=== PATIENT | female | born 1930 | race Caucasian/White ===

== ENCOUNTER 2016-07-16 14:25 | Inpatient (IN) | payer OTHER ==
[~2016-07-16] VITALS: Ht 165.1 cm; Wt 75.7 kg
[~2016-07-16 14:25] MED LIST: ATOR-54 PO; CHOL100027 PO; DIAZ2TAB PO; MAGN500C PO; MDR4 PO; MULT-884 PO
[2016-07-16] MEDS ORDERED: SODIUM CHLORIDE 0.9% 1000ML 1,000 ML IV STA (14:50)
[2016-07-16] MEDS ORDERED: ONDANSETRON INJ 2 MG/ML 2 ML VIAL IV STA (14:50)
[2016-07-16] MEDS ORDERED: MoRPHine SULFATE 4 MG/ML 1 ML CARP\\VIAL IV PRN (15:00)
[2016-07-16] MEDS ORDERED: PSEU30TA20 PO (15:05)
[2016-07-16] MEDS ORDERED: APIX1TAB3 PO (15:05)
--- NOTE | 2016-07-16 15:05 | EMERGENCY ROOM VISIT NOTE ---
History Report prepared by Greta: Campbell Hendrix Under the Supervision of: Dr. Troy Choi D.O. First contact with patient: 14:42 Chief Complaint: HIP PAIN Stated Complaint: FALL/HIP PAIN History of Present Illness The patient is an 85 year old female who presents to the Emergency Room with complaints of constant pain in the left hip following a falling episode. The patient states that she fell at 1320 this afternoon, roughly 1.5 hours prior to arrival. The patient denies hitting her head during the fall, or losing consciousness at any time. She also denies any neck pain or other injuries from the fall. She notes a history of blood clot and is currently on Eliquis daily. Source of History: patient Onset: 1.5 hours CORPORATE COMPLIANCE MANAGER Position: other (Left hip) Timing: constant Associated Symptoms: No LOC, No headache, No neck pain Review of Systems See HPI for pertinent positives & negatives. A total of 10 systems reviewed and were otherwise negative. Past Medical & Surgical Medical Problems: (1) Bronchitis (2) Chronic low back pain (3) Fracture of left hip (4) Hyperlipidemia (5) Osteoporosis Surgical Problems: (1) H/o bunion surgery (2) History of cataract surgery (3) Previous back surgery (4) S/P tonsillectomy (5) Status post lumbar surgery Family History Diabetes mellitus FH: pancreatic cancer FH: testicular cancer Social History Smoking Status: Never Smoker Drug Use: none Marital Status: Housing Status: assisted living Occupation Status: retired Current/Historical Medications Scheduled Apixaban (Eliquis), 5 MG PO BID Atorvastatin (Lipitor), 20 MG PO HS Cholecalciferol (Vitamin D3), 4,000 UNITS PO DAILY Magnesium Oxide (Mg Supplement (Magnesium), 500 MG PO DAILY Multiple Vitamin (Multi Vitamin Daily), 1 TAB PO DAILY Scheduled PRN Diazepam (Valium), 2 MG PO DAILY PRN for Muscle Spasms Fluticasone Propionate (Nasal) (Flonase Allergy Relief), 2 SPRAYS AUTUMN DAILY PRN for Nasal Congestion Pseudoephedrine (Sudafed), 30 MG PO UD PRN for Nasal Congestion Allergies Coded Allergies: Sulfa Antibiotics (Verified Allergy, Intermediate, RASH, 07/16/16) Doxycycline (Verified Adverse Reaction, Mild, GI UPSET, 07/16/16) Simvastatin (Verified Adverse Reaction, Mild, MUSCLE WEAKNESS, 07/16/16) Physical Exam Vital Signs Date Time Temp Pulse Resp B/P (MAP) Pulse Ox O2 Delivery O2 Flow Rate FiO2 07/16/16 17:00 90 Room Air 07/16/16 16:19 87 20 159/82 90 Room Air 07/16/16 14:35 36.9 84 17 181/103 94 Room Air Physical Exam GENERAL: Patient is awake, alert, and somewhat anxious and uncomfortable appearing. EYES: The conjunctivae are clear. The pupils are round and reactive. EARS, NOSE, MOUTH AND THROAT: The nose is without any evidence of any deformity. Mucous membranes are moist tongue is midline NECK: The neck is nontender and supple. RESPIRATORY: Normal respiratory effort is noted there is no evidence of wheezing rhonchi or rales CARDIOVASCULAR: Regular rate and rhythm noted there no murmurs rubs or gallops normal S1 normal S2 GASTROINTESTINAL: The abdomen is soft. Bowel sounds are present in all quadrants. Abdomen is nontender BACK: No midline tenderness or or step-off noted range of motion in flexion extension as well as rotation no signs of muscle spasm noted MUSCULOSKELETAL/EXTREMITIES: The left lower extremity was shortened with no significant rotation. There was tenderness with ROM over the left hip. Pulses were symmetric. SKIN: There is no obvious evidence of any rash. There are no petechiae, pallor or cyanosis noted. NEUROLOGIC: Patient is awake alert and oriented x3 Medical Decision & Procedures ER Provider Diagnostic Interpretation: Radiology results as stated below per my review and radiologist interpretation: CHEST 1 VW FRONT-NOT PORTABLE CLINICAL HISTORY: Left hip pain status post trauma COMPARISON STUDY: 02/01/2014 FINDINGS: The heart is borderline enlarged. There is mild nodular prominence of the right hilum. There are right perihilar atelectatic changes. There is no lobar consolidation. There is no failure.[ IMPRESSION: 1. Mild right perihilar atelectasis 2. Mild nonspecific nodular prominence of the right hilum. 3. No evidence of failure. No evidence of lobar consolidation. Electronically signed by: Severiano Villegas M.D. 07/16/2016 4:01 PM Dictated Date/Time: 07/16/2016 3:59 PM LEFT PELVIS/UNILATERAL HIP 2-3VIEWS CLINICAL HISTORY: fall trauma. Pain. COMPARISON: None. DISCUSSION: Fracture left femoral neck. No evidence of dislocation. Slice appear migration left femoral shaft. No evidence for acetabular protrusion. There is no evidence for soft tissue swelling. IMPRESSION: Fracture left femoral neck Electronically signed by: Florian Flaherty M.D. 07/16/2016 4:01 PM Dictated Date/Time: 07/16/2016 3:59 PM Laboratory Results 07/16/16 15:17 Red Blood Count 4.79, Mean Corpuscular Volume 90.4, Mean Corpuscular Hemoglobin 29.9, Mean Corpuscular Hemoglobin Concent 33.0, Mean Platelet Volume 9.2, Neutrophils (%) (Auto) 69.4, Lymphocytes (%) (Auto) 14.6, Monocytes (%) (Auto) 11.7, Eosinophils (%) (Auto) 3.5, Basophils (%) (Auto) 0.4, Neutrophils # (Auto ) 3.32, Lymphocytes # (Auto) 0.70, Monocytes # (Auto) 0.56, Eosinophils # (Auto ) 0.17, Basophils # (Auto) 0.02 07/16/16 15:17 Test 07/16/16 15:17 White Blood Count 4.79 K/uL (4.8-10.8) Red Blood Count 4.79 M/uL (4.2-5.4) Hemoglobin 14.3 g/dL (12.0-16.0) Hematocrit 43.3 % (37-47) Mean Corpuscular Volume 90.4 fL (80-100) Mean Corpuscular Hemoglobin 29.9 pg (25-34) Mean Corpuscular Hemoglobin Concent 33.0 g/dl (32-36) Platelet Count 227 K/uL (130-400) Mean Platelet Volume 9.2 fL (7.4-10.4) Neutrophils (%) (Auto) 69.4 % Lymphocytes (%) (Auto) 14.6 % Monocytes (%) (Auto) 11.7 % Eosinophils (%) (Auto) 3.5 % Basophils (%) (Auto) 0.4 % Neutrophils # (Auto) 3.32 K/uL (1.4-6.5) Lymphocytes # (Auto) 0.70 K/uL (1.2-3.4) Monocytes # (Auto) 0.56 K/uL (0.11-0.59) Eosinophils # (Auto) 0.17 K/uL (0-0.5) Basophils # (Auto) 0.02 K/uL (0-0.2) RDW Standard Deviation 41.6 fL (36.4-46.3) RDW Coefficient of Variation 12.5 % (11.5-14.5) Immature Granulocyte % (Auto) 0.4 % Immature Granulocyte # (Auto) 0.02 K/uL (0.00-0.02) Prothrombin Time 11.2 SECONDS (9.0-12.0) Prothromb Time International Ratio 1.0 (0.9-1.1) Activated Partial Thromboplast Time 29.6 SECONDS (21.0-31.0) Partial Thromboplastin Ratio 1.1 Anion Gap 8.0 mmol/L (3-11) Est Creatinine Clear Calc Drug Dose 59.6 ml/min Estimated GFR () 91.4 Estimated GFR (Non- 78.8 BUN/Creatinine Ratio 16.8 (10-20) Calcium Level 10.1 mg/dl (8.5-10.1) Troponin I < 0.015 ng/ml (0-0.045) 25-Hydroxy Vitamin D Total 27.5 ng/ml (30-100) Laboratory results per my review. Medications Administered Medications (Trade) Dose Ordered Sig/Robert Route Start Time Stop Time Status Last Admin Dose Admin Morphine Sulfate (MoRPHine SULFATE INJ) 4 mg Q15M PRN IV 07/16/16 15:00 07/16/16 18:21 DC 07/16/16 15:26 4 MG Ondansetron HCl (Zofran Inj) 4 mg NOW STAT IV 07/16/16 14:50 07/16/16 14:51 DC 07/16/16 15:26 4 MG Sodium Chloride 1,000 ml @ 125 mls/hr Q8H STAT IV 07/16/16 14:50 07/16/16 18:21 DC 07/16/16 15:26 125 MLS/HR Oxycodone HCl (Roxicodone Immediate Rel Tab) 5 mg Q4H PRN PO 07/16/16 17:15 07/30/16 17:14 07/16/16 17:58 5 MG Oxycodone HCl (Roxicodone Immediate Rel Tab) 10 mg Q4H PRN PO 07/16/16 17:15 07/30/16 17:14 07/16/16 21:01 10 MG Diazepam (Valium Tab) 2 mg DAILY PRN PO 07/16/16 17:30 08/15/16 17:29 07/16/16 19:22 2 MG ECG Indication: weakness Rate (beats per minute): 72 Rhythm: normal sinus Findings: PVC (Frequent), no acute ischemic change ED Course 1447: The patient was evaluated in room C4. A complete history and physical examination were performed. 1450: Ordered Sodium Chloride 1000 mL @ 125 mL/hr IV, Zofran 4 mg IV. 1500: Ordered Morphine Sulfate 4 mg IV. 161: I discussed the case with Dr. Tram Bhagat. He will evaluate the patient for further treatment. 165: I discussed the case with Dr. Combs - Orthopedic Surgery at this time. He will follow in consultation for surgical repair. Medical Decision Patient was found to have a slightly elevated blood pressure due to circumstances. I do not believe that the patient requires hypertension monitoring. Medication Reconciliation: I attest that I have personally reviewed the patient' s current medications list. Differential diagnosis: Etiologies such as fracture, dislocation, neurovascular compromise, compartment syndrome, soft tissue injury, as well as others were entertained. The patient is an 85-year-old female who presented to the emergency department after a fall. The patient fell onto her left side hurting her left hip. Her history and physical exam appear to be consistent with a hip fracture. Hip fracture was noted on plain x-rays. The patient was treated with IV pain medication and IV fluids in the emergency department. On subsequent reevaluation she was feeling somewhat better. I discussed the patient's laboratory and radiographic studies with her. I also discussed her case with the on-call [facility] hospitalist as well as the on-call orthopedic physician. They've agreed to evaluate the patient for further management and disposition. Consults Time Called: 161 Consulting Physician: Dr. Tram Bhagat Returned Call: 161 I discussed the case with Dr. Tram Bhagat. He will evaluate the patient for further treatment. Additional Consults: Time Called: 165 Consulted Physician: Dr. Bruce - Orthopedic Surgery Returned Call: 165 Additional Comments: I discussed the case with Dr. Combs - Orthopedic Surgery at this time. He will follow in consultation for surgical repair. Impression Primary Impression: Fall Additional Impression: Subcapital fracture of left hip Scribe Attestation The scribe's documentation has been prepared under my direction and personally reviewed by me in its entirety. I confirm that the note above accurately reflects all work, treatment, procedures, and medical decision making performed by me. Departure Information Dispostion Being Evaluated By Hospitalist Referrals Rod Guerrero III, M.D. (PCP) Patient Instructions My [facility] Problem Qualifiers Primary Impression: Fall Encounter type: initial encounter Qualified Codes: W19.XXXA - Unspecified fall, initial encounter Additional Impression: Subcapital fracture of left hip Encounter type: initial encounter Fracture type: closed Qualified Codes: S72.012A - Unspecified intracapsular fracture of left femur, initial encounter for closed fracture
[2016-07-16 15:47] LABS: BASO % 0.4 %; BASO ABS # 0.02 K/uL (0-0.2); COMPLETE YES; EOS % 3.5 %; HEMATOCRIT 43.3 % (37-47); IG% 0.4 %; LYMPH % 14.6 %; MEAN CELL VOLUME 90.4 fL (80-100); MEAN CORPUSCULAR HEMOGLOBIN 29.9 pg (25-34); MEAN PLATELET VOLUME 9.2 fL (7.4-10.4); MONO % 11.7 %; NEUT % 69.4 %; PLATELET COUNT 227 K/uL (130-400); RED BLOOD COUNT 4.79 M/uL (4.2-5.4); WHITE BLOOD COUNT 4.79 K/uL (4.8-10.8)
[2016-07-16 15:55] LABS: PARTIAL THROMBOPLASTIN RATIO 1.1; PROTHROMBIN TIME (PATIENT) 11.2 SECONDS (9.0-12.0)
--- NOTE | 2016-07-16 16:02 | DIAGNOSTIC IMAGING REPORT ---
LEFT PELVIS/UNILATERAL HIP 2-3VIEWS CLINICAL HISTORY: fall trauma. Pain. COMPARISON: None. DISCUSSION: Fracture left femoral neck. No evidence of dislocation. Slice appear migration left femoral shaft. No evidence for acetabular protrusion. There is no evidence for soft tissue swelling. IMPRESSION: Fracture left femoral neck Electronically signed by: Florian Flaherty M.D. 07/16/2016 4:01 PM Dictated Date/Time: 07/16/2016 3:59 PM
--- NOTE | 2016-07-16 16:03 | DIAGNOSTIC IMAGING REPORT ---
CHEST 1 VW FRONT-NOT PORTABLE CLINICAL HISTORY: Left hip pain status post trauma COMPARISON STUDY: 02/01/2014 FINDINGS: The heart is borderline enlarged. There is mild nodular prominence of the right hilum. There are right perihilar atelectatic changes. There is no lobar consolidation. There is no failure.[ IMPRESSION: 1. Mild right perihilar atelectasis 2. Mild nonspecific nodular prominence of the right hilum. 3. No evidence of failure. No evidence of lobar consolidation. Electronically signed by: Severiano Villegas M.D. 07/16/2016 4:01 PM Dictated Date/Time: 07/16/2016 3:59 PM
[2016-07-16 16:13] LABS: BUN/CREATININE RATIO 16.8 (10-20); CREATININE 0.69 mg/dl (0.60-1.20); POTASSIUM 3.7 mmol/L (3.5-5.1)
[2016-07-16 16:52] LABS: CALCIUM 10.1 mg/dl (8.5-10.1)
[2016-07-16 17:00] VITALS: O2SAT 90; Ht 165.1 cm; Wt 75.7 kg
[2016-07-16] MEDS ORDERED: ACETAMINOPHEN 325 MG TAB PO PRN (17:15)
[2016-07-16] MEDS ORDERED: NALOXONE HCL 0.4 MG/1 ML VIAL/CARP IV PRN (17:15)
[2016-07-16] MEDS ORDERED: BISACODYL 10 MG SUPP PR PRN (17:15)
[2016-07-16] MEDS ORDERED: MoRPHine SULFATE 2 MG/ML CARP IV PRN (17:15)
[2016-07-16] MEDS ORDERED: MAGNESIUM HYDROXIDE SUSP 30 ML UDC PO PRN (17:15)
[2016-07-16] MEDS ORDERED: SOD PHOSPHATE/SOD BIPHOSPHATE ENEMA 132 ML BTL PR PRN (17:15)
[2016-07-16] MEDS ORDERED: POLYETHYLENE (MIRALAX) 17 GM PACK PO PRN (17:15)
[2016-07-16] MEDS ORDERED: CHOL20005 PO (17:19)
[2016-07-16] MEDS ORDERED: FLUT0.15 NAE (17:21)
--- NOTE | 2016-07-16 17:48 | History and Physical ---
History & Physical Date & Time of Service: Jul 16, 2016 at 17:09 Chief Complaint: Fall/Hip Pain Primary Care Physician: Rod Guerrero III, M.D. 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 Patient states earlier today while walking too quickly she tripped on her sandal in the hallway of [facility] and fell onto her left hip. There was no dizziness or LOC. Patient was unable to stand due to severe left hip pain with movement. No other injury. 911 was called and patient was brought to ER by ambulance. Pain is localized in left groin area, rated 2/10 at rest and 9/10 with movement. She received IV morphine in ER which helped. Patient has been feeling at baseline recently. She lives in an independent apartment in [facility]. Patient climbs 2 flights of stairs daily without issues. Has occasional dry cough, sneezing, itchy watery eyes attributed to seasonal allergies. Denies fevers, chest pain, SOB, REYES, N/V/D, dysuria, frequency, edema, abnormal bleeding or bruising, acute focal weakness/ numbness. Last dose of Eliquis was at 9 am this morning. Patient denies any history of CAD. Last stress echo negative in 2004 showed normal LV EF 55-60%, grade 1 aortic insufficiency. Past Medical/Surgical History Medical Problems: (1) Bronchitis Status: Resolved (2) Chronic low back pain Status: Chronic (3) Hyperlipidemia Status: Chronic (4) Osteoporosis Status: Chronic Surgical Problems: (1) H/o bunion surgery Status: Chronic (2) History of cataract surgery Status: Resolved (3) Previous back surgery Status: Resolved (4) S/P tonsillectomy Status: Chronic (5) Status post lumbar surgery Status: Chronic Family History Diabetes mellitus FH: pancreatic cancer FH: testicular cancer Social History Smoking Status: Never Smoker Alcohol Use: none Marital Status: Housing status: other (independent living at [facility]) Occupational Status: retired Immunizations Influenza Vaccine Date: Feb 01, 2014 Multi-Drug Resistant Organisms History of MDRO: No Allergies Coded Allergies: Sulfa Antibiotics (Verified Allergy, Intermediate, RASH, 07/16/16) Doxycycline (Verified Adverse Reaction, Mild, GI UPSET, 07/16/16) Simvastatin (Verified Adverse Reaction, Mild, MUSCLE WEAKNESS, 07/16/16) Home Medications Scheduled Apixaban (Eliquis), 5 MG PO BID Atorvastatin (Lipitor), 20 MG PO HS Cholecalciferol (Vitamin D3), 4,000 UNITS PO DAILY Magnesium Oxide (Mg Supplement (Magnesium), 500 MG PO DAILY Multiple Vitamin (Multi Vitamin Daily), 1 TAB PO DAILY Scheduled PRN Diazepam (Valium), 2 MG PO DAILY PRN for Muscle Spasms Fluticasone Propionate (Nasal) (Flonase Allergy Relief), 2 SPRAYS AUTUMN DAILY PRN for Nasal Congestion Pseudoephedrine (Sudafed), 30 MG PO UD PRN for Nasal Congestion Review of Systems Ten systems reviewed and negative except as noted in HPI. Physical Exam Vital Signs Date Time Temp Pulse Resp B/P (MAP) Pulse Ox O2 Delivery O2 Flow Rate FiO2 07/16/16 16:19 87 20 159/82 90 Room Air 07/16/16 14:35 36.9 84 17 181/103 94 Room Air General Appearance: WD/WN, no apparent distress, + pertinent finding (pleasant alert elderly female, daughter at bedside) Head: normocephalic, atraumatic Eyes: normal inspection, PERRL, EOMI ENT: hearing grossly normal, pharynx normal Neck: supple, trachea midline Respiratory/Chest: lungs clear, normal breath sounds, no respiratory distress, no accessory muscle use Cardiovascular: regular rate, rhythm, no murmur Abdomen/GI: normal bowel sounds, non tender, soft Extremities/Musculoskelatal: no calf tenderness, no pedal edema, + pertinent finding (severe pain with left hip ROM) Neurologic/Psych: alert, normal mood/affect, oriented x 3, + pertinent finding (sensation to light touch grossly intact bilateral LE. able to flex/ extend bilateral ankles against gravity) Skin: normal color, warm/dry Diagnostics Laboratory Results Results Past 24 Hours Test 07/16/16 15:17 Range/Units White Blood Count 4.79 4.8-10.8 K/uL Red Blood Count 4.79 4.2-5.4 M/uL Hemoglobin 14.3 12.0-16.0 g/dL Hematocrit 43.3 37-47 % Mean Corpuscular Volume 90.4 80-100 fL Mean Corpuscular Hemoglobin 29.9 25-34 pg Mean Corpuscular Hemoglobin Concent 33.0 32-36 g/dl Platelet Count 227 130-400 K/uL Mean Platelet Volume 9.2 7.4-10.4 fL Neutrophils (%) (Auto) 69.4 % Lymphocytes (%) (Auto) 14.6 % Monocytes (%) (Auto) 11.7 % Eosinophils (%) (Auto) 3.5 % Basophils (%) (Auto) 0.4 % Neutrophils # (Auto) 3.32 1.4-6.5 K/uL Lymphocytes # (Auto) 0.70 1.2-3.4 K/uL Monocytes # (Auto) 0.56 0.11-0.59 K/uL Eosinophils # (Auto) 0.17 0-0.5 K/uL Basophils # (Auto) 0.02 0-0.2 K/uL RDW Standard Deviation 41.6 36.4-46.3 fL RDW Coefficient of Variation 12.5 11.5-14.5 % Immature Granulocyte % (Auto) 0.4 % Immature Granulocyte # (Auto) 0.02 0.00-0.02 K/uL Prothrombin Time 11.2 9.0-12.0 SECONDS Prothromb Time International Ratio 1.0 0.9-1.1 Activated Partial Thromboplast Time 29.6 21.0-31.0 SECONDS Partial Thromboplastin Ratio 1.1 Sodium Level 134 136-145 mmol/L Potassium Level 3.7 3.5-5.1 mmol/L Chloride Level 99 98-107 mmol/L Carbon Dioxide Level 27 21-32 mmol/L Anion Gap 8.0 3-11 mmol/L Blood Urea Nitrogen 12 7-18 mg/dl Creatinine 0.69 0.60-1.20 mg/dl Est Creatinine Clear Calc Drug Dose 59.6 ml/min Estimated GFR () 91.4 Estimated GFR (Non- 78.8 BUN/Creatinine Ratio 16.8 10-20 Random Glucose 98 70-99 mg/dl Calcium Level 10.1 8.5-10.1 mg/dl Troponin I < 0.015 0-0.045 ng/ml Diagnostic Radiology LEFT PELVIS/UNILATERAL HIP 2-3VIEWS CLINICAL HISTORY: fall trauma. Pain. COMPARISON: None. DISCUSSION: Fracture left femoral neck. No evidence of dislocation. Slice appear migration left femoral shaft. No evidence for acetabular protrusion. There is no evidence for soft tissue swelling. IMPRESSION: Fracture left femoral neck CHEST 1 VW FRONT-NOT PORTABLE CLINICAL HISTORY: Left hip pain status post trauma COMPARISON STUDY: 02/01/2014 FINDINGS: The heart is borderline enlarged. There is mild nodular prominence of the right hilum. There are right perihilar atelectatic changes. There is no lobar consolidation. There is no failure.[ IMPRESSION: 1. Mild right perihilar atelectasis 2. Mild nonspecific nodular prominence of the right hilum. 3. No evidence of failure. No evidence of lobar consolidation. EKG sinus rhythm with occasional PVC, otherwise normal, as per cardiology read, also reviewed by me Impression Assessment and Plan LEFT HIP FRACTURE S/p mechanical fall; patient with underlying osteoporosis Management per geriatric hip fracture protocol Good functional status- climbs 2 flights of stairs daily EKG- no ischemic findings No recent echo- will check TTE to assess cardiac function Consult anesthesiology for preop eval Spoke to Dr. Travis regarding how long Eliquis must be held prior to surgery- recommended postponing surgery until Wednesday 07/19; appreciate the assistance Consult ortho- spoke with Dr. Combs; patient will be added to OR schedule for Tuesday; appreciate assistance Check vitamin D level and continue home supplement ELEVATED BP Patient does not have a history of hypertension BP elevated in ER due to pain- improving Continue pain control DYSLIPIDEMIA Continue statin HISTORY OF DVT RLE DVT unprovoked in 2014 Hold Eliquis due to need for surgery Per Dr. Travis's recommendation, when Eliquis is resumed the correct dosing would be 2.5 mg BID for DVT >6 months ago VTE PROPHYLAXIS SCD's CODE STATUS Full code per my discussion with the patient Patient seen in collaboration with Dr. Ugalde. Please see his addendum The patient was seen and examined. S/P Mechanical fall resulting in fracture of the left Femoral neck Complains of pain on movement of the left Lower extremity No other symptoms Has been on Eliquis for DVT in 2014 O/E Hemodynamically stable Chest-clear to ausucltate bilaterally Heart-regular Abdomen-benign,no masses,bowel sound present Extremities-trace edema bilaterally ,left leg is short and rotated internally Labs and imaging studies were reviewed Check ECHO:has H/O Aortic insufficiency,r/o any Agree with the assessment and plan DR Suzan Ugalde VTE Prophylaxis VTE Risk Assessment Done? Y/N: Yes Risk Level: High Given or contraindicated: SCD's
[2016-07-16] MEDS: OXYCODONE HCL IR 5 MG TAB (IMMEDIATE RELEASE) PO PRN ×2 (17:58→21:01)
[2016-07-16 18:00] VITALS: BP 156/78; PULSE 78; TEMP 36.7; O2SAT 91
[2016-07-16 18:29] LABS: URINE APPEARANCE CLEAR (CLEAR); URINE BILIRUBIN NEG (NEG); URINE COLOR YELLOW; URINE NITRITE NEG (NEG); URINE PH 7.5 (4.5-7.5); URINE SPECIFIC GRAVITY 1.011 (1.000-1.030); UROBILINOGEN NEG (NEG); ZZURINE CULT IF INDIC CATH NO
[2016-07-16 18:30] LABS: MANUAL MICROSCOPIC REQUIRED? NO; REVIEW REQ? NO
[2016-07-16] MEDS: DIAZEPAM 2MG TAB PO PRN (19:22)
[2016-07-16] MEDS: DOCUSATE SODIUM/SENNA 50/8.6MG TAB PO SCH (21:00)
[2016-07-16] MEDS: ATORVASTATIN 20 MG TAB PO SCH (21:00)
[2016-07-16 22:42] VITALS: BP 132/71; PULSE 74; TEMP 36.4; O2SAT 94
[2016-07-17] MEDS: OXYCODONE HCL IR 5 MG TAB (IMMEDIATE RELEASE) PO PRN ×5 (02:13→22:08)
[2016-07-17] MEDS ORDERED: CEFAZOLIN 2000 MG/60 ML D5W 60 ML IV SCH (06:00)
[2016-07-17 06:46] VITALS: BP 119/67; PULSE 70; TEMP 36.8; O2SAT 94
[2016-07-17] MEDS: CHOLECALCIFEROL 1000 INTER.UNIT TAB PO SCH (07:38)
[2016-07-17] MEDS: MULTIVITAMIN TAB PO SCH (07:38)
[2016-07-17] MEDS: MAGNESIUM OXIDE 400 MG TAB PO SCH (07:38)
--- NOTE | 2016-07-17 10:30 | ORTHOPEDIC CONSULTATION ---
DATE OF CONSULTATION: 07/17/2016 DATE OF CONSULTATION: 07/17/2016. HISTORY OF PRESENT ILLNESS: The patient is a pleasant 85-year-old female who feels that she caught her sandal and tripped. She lives at [facility] in [facility] on the third floor. She walks the stairs 3 flights daily. She said she is a little short of breath by the time she gets to the top of the stairs, but she would rather do the stairs than take an elevator. She was brought to the Emergency Room with pain in her left hip with a diagnosis of a displaced femoral neck fracture. PAST MEDICAL HISTORY: Positive for bronchitis, low back pain, hyperlipidemia, osteoporosis. PAST SURGICAL HISTORY: Bunion surgery, cataract, back surgery, tonsillectomy. FAMILY HISTORY: Diabetes, pancreatic cancer, testicular cancer. SOCIAL HISTORY: Never smoked. No alcohol use. She is , once again lives independently. ALLERGIES: SULFA ANTIBIOTICS, DOXYCYCLINE, SIMVASTATIN. MEDICATIONS: She is on Eliquis, Lipitor, vitamin D, magnesium, and multivitamin. PHYSICAL EXAMINATION: GENERAL: Demonstrates that she has no upper extremity trauma. HEAD AND NECK: Exam is normal. EXTREMITIES: Her lower extremity exam demonstrates her left leg is shortened and externally rotated with some moderate swelling about the hip. Distal neurological exam is intact. She can dorsiflex and plantarflex her foot well. She is comfortable if she is not moved. Her x-rays demonstrate a displaced femoral neck fracture. ASSESSMENT: Left hip acute displaced femoral neck fracture, posttraumatic. The patient is a very active individual, an active community ambulator. She drives independently. She shops independently and she would like to climb 3 flights of stairs on a regular basis again. With her activity level I would recommend a total hip replacement. She is on Eliquis so there is a mandatory wait of at least 48 hours prior to any surgery, so tentatively she is scheduled for surgery on Tuesday. Consult Dr. Rabago if he is present at the time and she may consider doing surgery as one of her relatives had surgery with him. Either that or I will perform the surgery. Went over this at length with her. She should be n.p.o. at midnight on Tuesday evening. She will need reoperative antibiotics Ancef. Thank you for this consultation.
--- NOTE | 2016-07-17 13:45 | ECHOCARDIOGRAM REPORT ---
*NOTICE TO RECEIVING [facility] This information is strictly Confidential and protected under [place] law. [place] law prohibits you from making any further disclosure of this information unless further disclosure is expressly permitted by the written consent of the person to whom it pertains or is authorized by law. A general authorization for the release of medical or other information is not sufficient for this purpose. Hospital accepts no responsibility if the information is made available to any other person, INCLUDING THE PATIENT. Interpretation Summary * Name: LUIS ANAYA Study Date: 07/17/2016 07:46 AM BP: 119/67 mmHg * Patient Location: [facility]\S\W350\S\2 HR: 70 * : 1930 (M/d/yyy) Gender: Female Height: 65 in * Age: 85 yrs Ethnicity: [place] Weight: 166 lb * Ordering Physician: Codie Root * Referring Physician: Self, Referred * Performed By: Johanne Jean Baptiste RDCS * * Reason For Study: Pre-op * BSA: 1.8 m2 * The study was technically adequate. * There is no comparison study available. * -- Conclusions -- * Ejection Fraction = 55-60%. * There is mild concentric left ventricular hypertrophy. * No regional wall motion abnormalities noted. * Grade I diastolic dysfunction, (abnormal relaxation pattern). * Aortic valve sclerosis mild, without significant aortic valvular stenosis. * Mild aortic regurgitation. Procedure Details * A complete two-dimensional transthoracic echocardiogram was performed (2D, M-mode, Doppler and color flow Doppler). Left Ventricle * The left ventricle is normal in size. * There is no thrombus. * There is mild concentric left ventricular hypertrophy. * The basal septum is thickened and angulated consistent with sigmoid septum. * Ejection Fraction = 55-60%. * Left ventricular systolic function is normal. * No regional wall motion abnormalities noted. Right Ventricle * The right ventricle is normal size. * The right ventricular systolic function is normal as assessed by tricuspid annular plane systolic excursion (TAPSE) (normal >1.5 cm). Atria * The left atrial size is normal. * Right atrial size is normal. * There is no evidence of atrial septal defect, but resolution does not allow assessment for a patent foramen ovale. * The atrial septum is aneurysmal. Mitral Valve * There is moderate mitral annular calcification. * There is no mitral valve stenosis. * Significant mitral regurgitation is absent. Tricuspid Valve * The tricuspid valve is normal. * There is no tricuspid stenosis. * Significant tricuspid regurgitation is absent. Aortic Valve * The aortic valve is trileaflet. * Aortic valve sclerosis mild, without significant aortic valvular stenosis. * Aortic stenosis is absent. * Mild aortic regurgitation. Pulmonic Valve * The pulmonary valve is not well seen, but the Doppler examination is normal without significant regurgitation or stenosis. Great Vessels * The aortic root and proximal ascending aorta are normal sized. Pericardium/Pleural * There is no pericardial effusion. Great Vessels * Normal inferior vena cava diameter and respiratory variation suggests normal central venous pressure. Left Ventricular Diastolic Function * Grade I diastolic dysfunction, (abnormal relaxation pattern). MMode 2D Measurements and Calculations IVSd 1.2 cm LVIDd 3.9 cm LVIDs 2.6 cm LVPWd 0.85 cm IVS/LVPW 1.4 FS 34.0 % EDV(Teich) 67.7 ml ESV(Teich) 24.7 ml EF(Teich) 63.5 % EDV(cubed) 61.3 ml ESV(cubed) 17.6 ml EF(cubed) 71.2 % LV mass(C)d 127.0 grams LV mass(C)dI 69.5 grams/m\S\2 CO(Teich) 3.0 l/min CI(Teich) 1.6 l/min/m\S\2 SV(Teich) 43.0 ml SI(Teich) 23.5 ml/m\S\2 CO(cubed) 3.0 l/min CI(cubed) 1.6 l/min/m\S\2 SV(cubed) 43.7 ml SI(cubed) 23.9 ml/m\S\2 Ao root diam 3.3 cm Ao root area 8.4 cm\S\2 ACS 1.8 cm LA dimension 3.6 cm asc Aorta Diam 3.3 cm LA/Ao 1.1 LVOT diam 2.0 cm LVOT area 3.1 cm\S\2 LVAd ap4 27.2 cm\S\2 LVLd ap4 8.0 cm EDV(MOD-sp4) 75.6 ml LVAs ap4 15.7 cm\S\2 LVLs ap4 6.8 cm ESV(MOD-sp4) 32.2 ml EF(MOD-sp4) 57.4 % LVAd ap2 28.9 cm\S\2 LVLd ap2 8.0 cm EDV(MOD-sp2) 88.4 ml LVAs ap2 16.9 cm\S\2 LVLs ap2 6.6 cm ESV(MOD-sp2) 37.9 ml EF(MOD-sp2) 57.1 % CO(MOD-sp4) 3.0 l/min CI(MOD-sp4) 1.6 l/min/m\S\2 SV(MOD-sp4) 43.4 ml SI(MOD-sp4) 23.7 ml/m\S\2 CO(MOD-sp2) 3.5 l/min CI(MOD-sp2) 1.9 l/min/m\S\2 SV(MOD-sp2) 50.5 ml SI(MOD-sp2) 27.6 ml/m\S\2 Doppler Measurements and Calculations MV E max grady 34.9 cm/sec MV A max grady 76.6 cm/sec MV E/A 0.46 MV dec time 0.35 sec Ao V2 max 110.1 cm/sec Ao max PG 4.9 mmHg Ao max PG (full) 2.4 mmHg DARYA(V,A) 2.2 cm\S\2 DARYA(V,D) 2.2 cm\S\2 AI max grady 375.2 cm/sec AI max PG 56.4 mmHg AI dec slope 207.5 cm/sec\S\2 AI P1/2t 529.6 msec LV V1 max PG 2.4 mmHg LV V1 max 78.1 cm/sec PA V2 max 84.7 cm/sec PA max PG 2.9 mmHg PA acc slope 440.8 cm/sec\S\2 PA acc time 0.12 sec PA pr(Accel) 23.5 mmHg
--- NOTE | 2016-07-17 13:47 | Progress Note ---
Internal Med Progress Note Date of Service: Jul 17, 2016. Provider Documentation: SUBJECTIVE: Seen and examined at bedside. States left hip pain is controlled. Denies any chest pain, SOB, fever, chills. Family at bedside. OBJECTIVE: Vital Signs-as noted below Physical Exam: General Appearance:Moderately built and nourished, no apparent distress Head: normocephalic, Atraumatic Eyes: normal inspection, EOMI, PERRL Neck: supple, Trachea midline Respiratory/Chest: Normal breath sounds, CTA Cardiovascular: S1, S2, No murmur Abdomen/GI:Soft, Non tender, Bowel sounds present Extremities/Musculoskelatal:normal inspection, Left LE decreased ROM secondary to pain, No edema Neurologic/Psych:grossly no focal neurological deficits Skin: normal color, warm Lab data as noted below. ASSESSMENT & PLAN: LEFT HIP FRACTURE S/p mechanical fall Good functional status at baseline ECHO: EF:55-60%. No regional wall motion abnormalities Patient on Eliquis for H/O DVT, currently on hold for surgery Appreciate Ortho input Pain control Likely surgery on Tuesday ELEVATED BP Situational No H/O hypertension BP better today Continue pain control DYSLIPIDEMIA Continue statin H/O DVT RLE DVT unprovoked in 2014 Hold Eliquis due to need for surgery Per Dr. Travis's recommendation, when Eliquis is resumed the correct dosing would be 2.5 mg BID for DVT >6 months ago DVT Px: SCD's CODE STATUS Full code PROCEDURES: ECHO: * Ejection Fraction = 55-60%. * There is mild concentric left ventricular hypertrophy. * No regional wall motion abnormalities noted. * Grade I diastolic dysfunction, (abnormal relaxation pattern). * Aortic valve sclerosis mild, without significant aortic valvular stenosis. * Mild aortic regurgitation. Vital Signs: Date Time Temp Pulse Resp B/P (MAP) Pulse Ox O2 Delivery O2 Flow Rate FiO2 07/17/16 08:00 Nasal Cannula 2.0 07/17/16 06:46 36.8 70 17 119/67 (84) 94 Room Air 07/17/16 00:10 Room Air 2.0 Nasal Cannula 07/16/16 22:42 36.4 74 18 132/71 (91) 94 Room Air 07/16/16 18:20 Nasal Cannula 2.0 07/16/16 18:00 36.7 78 18 156/78 (104) 91 Room Air 07/16/16 17:50 88 20 151/97 96 07/16/16 17:00 90 Room Air 07/16/16 16:19 87 20 159/82 90 Room Air 07/16/16 14:35 36.9 84 17 181/103 94 Room Air Lab Results: Results Past 24 Hours Test 07/16/16 15:17 07/16/16 18:14 Range/Units White Blood Count 4.79 4.8-10.8 K/uL Red Blood Count 4.79 4.2-5.4 M/uL Hemoglobin 14.3 12.0-16.0 g/dL Hematocrit 43.3 37-47 % Mean Corpuscular Volume 90.4 80-100 fL Mean Corpuscular Hemoglobin 29.9 25-34 pg Mean Corpuscular Hemoglobin Concent 33.0 32-36 g/dl Platelet Count 227 130-400 K/uL Mean Platelet Volume 9.2 7.4-10.4 fL Neutrophils (%) (Auto) 69.4 % Lymphocytes (%) (Auto) 14.6 % Monocytes (%) (Auto) 11.7 % Eosinophils (%) (Auto) 3.5 % Basophils (%) (Auto) 0.4 % Neutrophils # (Auto) 3.32 1.4-6.5 K/uL Lymphocytes # (Auto) 0.70 1.2-3.4 K/uL Monocytes # (Auto) 0.56 0.11-0.59 K/uL Eosinophils # (Auto) 0.17 0-0.5 K/uL Basophils # (Auto) 0.02 0-0.2 K/uL RDW Standard Deviation 41.6 36.4-46.3 fL RDW Coefficient of Variation 12.5 11.5-14.5 % Immature Granulocyte % (Auto) 0.4 % Immature Granulocyte # (Auto) 0.02 0.00-0.02 K/uL Prothrombin Time 11.2 9.0-12.0 SECONDS Prothromb Time International Ratio 1.0 0.9-1.1 Activated Partial Thromboplast Time 29.6 21.0-31.0 SECONDS Partial Thromboplastin Ratio 1.1 Sodium Level 134 136-145 mmol/L Potassium Level 3.7 3.5-5.1 mmol/L Chloride Level 99 98-107 mmol/L Carbon Dioxide Level 27 21-32 mmol/L Anion Gap 8.0 3-11 mmol/L Blood Urea Nitrogen 12 7-18 mg/dl Creatinine 0.69 0.60-1.20 mg/dl Est Creatinine Clear Calc Drug Dose 59.6 ml/min Estimated GFR () 91.4 Estimated GFR (Non- 78.8 BUN/Creatinine Ratio 16.8 10-20 Random Glucose 98 70-99 mg/dl Calcium Level 10.1 8.5-10.1 mg/dl Troponin I < 0.015 0-0.045 ng/ml 25-Hydroxy Vitamin D Total 27.5 30-100 ng/ml Urine Color YELLOW Urine Appearance CLEAR CLEAR Urine pH 7.5 4.5-7.5 Urine Specific [place] 1.011 1.000-1.030 Urine Protein NEG NEG Urine Glucose (UA) NEG NEG Urine Ketones NEG NEG Urine Occult Blood NEG NEG Urine Nitrite NEG NEG Urine Bilirubin NEG NEG Urine Urobilinogen NEG NEG Urine Leukocyte Esterase NEG NEG Microbiology Results 07/16/16 MRSA DNA Surveillance Screen - Final, Complete Specimen Negative for MRSA by DNA Probe
[2016-07-17] MEDS ORDERED: NURSING VERBAL MED ORDER ONE ×3 (14:15→18:15)
[2016-07-17] MEDS: SODIUM CHLORIDE 0.9% 1000ML 1,000 ML IV SCH (14:55)
[2016-07-17 15:01] VITALS: BP 146/70; PULSE 74; TEMP 36.4; O2SAT 94
[2016-07-17] MEDS ORDERED: COUGH DROP (SUGAR FREE) LOZ 24 LOZ/1 BOX ONE (15:16)
[2016-07-17] MEDS ORDERED: COUGH DROP (SUGAR FREE) LOZ 24 LOZ/1 BOX PO PRN (16:15)
[2016-07-17] MEDS: BOOST VANILLA PO SCH ×2 (20:59)
[2016-07-17] MEDS: ATORVASTATIN 20 MG TAB PO SCH (20:59)
[2016-07-17] MEDS: DOCUSATE SODIUM/SENNA 50/8.6MG TAB PO SCH (21:00)
[2016-07-17 22:55] VITALS: BP 149/71; PULSE 77; TEMP 37.5; O2SAT 95
[2016-07-18] MEDS: ONDANSETRON INJ 2 MG/ML 2 ML VIAL IV PRN ×2 (02:03→08:04)
[2016-07-18] MEDS: DIAZEPAM 2MG TAB PO PRN (02:59)
[2016-07-18 07:20] VITALS: BP 164/72; PULSE 74; TEMP 36.7; O2SAT 92
--- NOTE | 2016-07-18 08:01 | Orthopedic Progress Note ---
Orthopedic Progress Note Date of Service Jul 18, 2016. Subjective Reports: feeling well, pain controlled w PO medications, Denies: complaints, chest pain, SOB, nausea / vomiting, light headedness, calf pain Additional Notes: PATIENT COMFORTABLE THIS AM Objective calves soft nontender, N/V intact, capillary refill less than 2 sec., A&O x3, toes mobile Date Time Temp Pulse Resp B/P (MAP) Pulse Ox O2 Delivery O2 Flow Rate FiO2 07/18/16 07:20 36.7 74 16 164/72 (102) 92 Room Air 07/17/16 23:15 Nasal Cannula 2.0 07/17/16 22:55 37.5 77 16 149/71 (97) 95 Nasal Cannula 2.0 07/17/16 21:00 Nasal Cannula 2.0 07/17/16 15:58 Nasal Cannula 2.0 07/17/16 15:01 36.4 74 18 146/70 (95) 94 Nasal Cannula 2.0 07/17/16 08:00 Nasal Cannula 2.0 Assessment & Plan Assessment: LEFT HIP FRACTURE- FOR BIPOLAR TUESDAY Plan: NPO AFTER MN FOR SURGERY TUE- KEN NEEDED TO WAIT 48 HRS TO OPERATE PAIN CONTROL
[2016-07-18 08:16] VITALS: O2SAT 92
[2016-07-18] MEDS: CHOLECALCIFEROL 1000 INTER.UNIT TAB PO SCH (09:39)
[2016-07-18] MEDS: MULTIVITAMIN TAB PO SCH (09:39)
[2016-07-18] MEDS: MAGNESIUM OXIDE 400 MG TAB PO SCH (09:39)
[2016-07-18] MEDS: BOOST VANILLA PO SCH ×4 (09:44→20:04)
[2016-07-18] MEDS: SODIUM CHLORIDE 0.9% 1000ML 1,000 ML IV SCH (09:45)
--- NOTE | 2016-07-18 13:21 | Progress Note ---
Internal Med Progress Note Date of Service: Jul 18, 2016. Provider Documentation: SUBJECTIVE: Seen and examined at bedside. States left hip pain is controlled. Has spasms of leg intermittently. Denies any chest pain, SOB, fever, chills. OBJECTIVE: Vital Signs-as noted below Physical Exam: General Appearance:Moderately built and nourished, no apparent distress Head: normocephalic, Atraumatic Eyes: normal inspection, EOMI, PERRL Neck: supple, Trachea midline Respiratory/Chest: Normal breath sounds, CTA Cardiovascular: S1, S2, No murmur Abdomen/GI:Soft, Non tender, Bowel sounds present Extremities/Musculoskelatal:normal inspection, Left LE decreased ROM secondary to pain, No edema Neurologic/Psych:grossly no focal neurological deficits Skin: normal color, warm Lab data as noted below. ASSESSMENT & PLAN: LEFT HIP FRACTURE S/p mechanical fall Good functional status at baseline ECHO: EF:55-60%. No regional wall motion abnormalities Patient on Eliquis for H/O DVT, currently on hold for surgery Appreciate Ortho input Pain control, Flexeril PRN for spasms Planned for surgery tomorrow NPO after midnight ELEVATED BP Situational No H/O hypertension Continue pain control Monitor DYSLIPIDEMIA Continue statin H/O DVT RLE DVT unprovoked in 2014 Hold Eliquis due to need for surgery Per Dr. Travis's recommendation, when Eliquis is resumed the correct dosing would be 2.5 mg BID for DVT >6 months ago DVT Px: SCD's CODE STATUS Full code PROCEDURES: ECHO: * Ejection Fraction = 55-60%. * There is mild concentric left ventricular hypertrophy. * No regional wall motion abnormalities noted. * Grade I diastolic dysfunction, (abnormal relaxation pattern). * Aortic valve sclerosis mild, without significant aortic valvular stenosis. * Mild aortic regurgitation. Vital Signs: Date Time Temp Pulse Resp B/P (MAP) Pulse Ox O2 Delivery O2 Flow Rate FiO2 07/18/16 08:16 92 Nasal Cannula 2.0 07/18/16 07:20 36.7 74 16 164/72 (102) 92 Room Air 07/17/16 23:15 Nasal Cannula 2.0 07/17/16 22:55 37.5 77 16 149/71 (97) 95 Nasal Cannula 2.0 07/17/16 21:00 Nasal Cannula 2.0 07/17/16 15:58 Nasal Cannula 2.0 07/17/16 15:01 36.4 74 18 146/70 (95) 94 Nasal Cannula 2.0
[2016-07-18] MEDS: CYCLOBENZAPRINE HCL 5 MG TAB PO PRN (14:05)
--- NOTE | 2016-07-18 14:31 | Anesthesiology Progress Note ---
Pre-OP Anesthesia Assessment Date of Note Jul 18, 2016. Review patient information reviewed, chart reviewed, labs reviewed, acceptable for surgery Notes I saw this pt for L NICK by Dr. Rabago/Lauryn tomorrow. She had a purely mechanical fall and suffered a L femoral neck fracture. PMH significant only for unprovoked DVT in for which she takes Eliquis (last dose 07/16 at 09:00) and HLD. She had what sounds like a L4-5 discectomy (no fusion) in and has had a R foot drop since then. No problems w/ anesthesia. She's very active: she lives independently and can climb 3 flights of stairs w/out CP or significant SOB. On exam, she's sitting up in bed, awake and alert, NAD. She's very sharp. Airway shows MP3 w/ teeth but is otherwise benign. Heart and lung exam normal. Afebrile w/ stable vitals, currently on 2L NC. Labs normal. EKG normal. Echo shows normal EF, mild LVH, mild AI. CXR shows no CHF or PNA. I consented her for spinal and GA. It will be > 72 hours from her last dose of Eliquis so she could safely receive a spinal, to which she is amenable. She'll be NPO after midnight except sips of water w/ meds.
[2016-07-18 15:10] VITALS: BP 146/64; PULSE 76; TEMP 37.3; O2SAT 92
[2016-07-18 15:45] VITALS: O2SAT 92
[2016-07-18] MEDS: OXYCODONE HCL IR 5 MG TAB (IMMEDIATE RELEASE) PO PRN (17:55)
[2016-07-18] MEDS: ATORVASTATIN 20 MG TAB PO SCH (20:57)
[2016-07-18] MEDS: DOCUSATE SODIUM/SENNA 50/8.6MG TAB PO SCH (20:57)
[2016-07-18 23:27] VITALS: BP 164/72; PULSE 81; TEMP 37.5; O2SAT 91
[2016-07-19] VITALS (9 sets, daily range): BP systolic 116–159; BP diastolic 63–85; PULSE 81–92; TEMP 36.8–37.8; O2SAT 91–98
[2016-07-19] MEDS: SODIUM CHLORIDE 0.9% 1000ML 1,000 ML IV SCH (05:40)
[2016-07-19] MEDS ORDERED: CEFAZOLIN 1000MG/55 ML D5W IV SCH (06:00)
[2016-07-19 06:11] LABS: BASO % 0.2 %; BASO ABS # 0.01 K/uL (0-0.2); COMPLETE YES; EOS % 2.6 %; HEMATOCRIT 37.3 % (37-47); IG% 0.2 %; LYMPH % 8.5 %; LYMPH ABS # 0.56 K/uL (1.2-3.4); MEAN CORPUSCULAR HEMOGLOBIN 31.2 pg (25-34); MEAN CORPUSCULAR HGB CONC 33.5 g/dl (32-36); MEAN PLATELET VOLUME 9.4 fL (7.4-10.4); NEUT % 74.5 %; PLATELET COUNT 158 K/uL (130-400); RED BLOOD COUNT 4.01 M/uL (4.2-5.4); WHITE BLOOD COUNT 6.57 K/uL (4.8-10.8)
[2016-07-19 06:42] LABS: BUN/CREATININE RATIO 23.9 (10-20); CALCIUM 8.7 mg/dl (8.5-10.1); CREATININE 0.48 mg/dl (0.60-1.20); POTASSIUM 3.9 mmol/L (3.5-5.1)
[2016-07-19] MEDS ORDERED: BUPIVACAINE 0.5 % 5 MG/1 ML PF 10ML VIAL ONE (07:02)
--- NOTE | 2016-07-19 07:18 | Clinical Documentation Query ---
CLINICAL DOCUMENTATION QUERY 85 year old female who presents to the Emergency Room with complaints of constant pain in the left hip following a fall. In your clinical opinion is this patient being managed for: ( X ) Traumatic osteoporotic left femoral neck fracture in setting of elderly female who suffered a ground level fall. ( ) Other explanation of clinical findings (Please Explain) ( ) Unable to determine (Please Define) ( ) Need to Discuss ( ) Not Agree The medical record reflects the following clinical findings, treatment, and risk factors. Clinical Indicators: 84 y/o, Patient states earlier today while walking too quickly she tripped on her sandal in the hallway of [facility] and fell onto her left hip. Low Vitamin D level 27.5. Treatment: Ortho consult with scheduled bipolar hip Risk Factors: Age, sex, low vitamin D level, and major long bone fracture sustained from ground level fall. Please clarify and document your clinical opinion in the progress notes and discharge summary. Terms such as "probable", "suspected", "likely", "questionable", "possible", or "still to be ruled out" are acceptable. IF IN AGREEMENT, YOU MUST DOCUMENT ABOVE DIAGNOSTIC STATEMENT IN DAILY PROGRESS NOTES AND DISCHARGE SUMMARY. This document is not part of the patient's record. Thank You, Landry Cristina, NILAM [phone]
--- NOTE | 2016-07-19 07:44 | Orthopedic Progress Note ---
Orthopedic Progress Note Date of Service Jul 19, 2016. Subjective Post OP Day: 1 Reports: feeling well, pain controlled w PO medications, Denies: complaints Objective calves soft nontender, N/V intact, A&O x3 Date Time Temp Pulse Resp B/P (MAP) Pulse Ox O2 Delivery O2 Flow Rate FiO2 07/19/16 06:52 37.0 81 18 159/74 (102) 92 Nasal Cannula 2.0 Humidified Oxygen 07/19/16 01:59 155/74 (101) 07/19/16 00:15 Nasal Cannula 2.0 Humidified Air 07/18/16 23:27 37.5 81 16 164/72 (102) 91 Nasal Cannula 2.0 Humidified Air 07/18/16 15:45 92 Nasal Cannula 2.0 07/18/16 15:10 37.3 76 18 146/64 (91) 92 Nasal Cannula 2.0 07/18/16 08:16 92 Nasal Cannula 2.0 Laboratory Results 24 Hours: Test 07/19/16 05:51 White Blood Count 6.57 K/uL Red Blood Count 4.01 M/uL Hemoglobin 12.5 g/dL Hematocrit 37.3 % Mean Corpuscular Volume 93.0 fL Mean Corpuscular Hemoglobin 31.2 pg Mean Corpuscular Hemoglobin Concent 33.5 g/dl Platelet Count 158 K/uL Mean Platelet Volume 9.4 fL Neutrophils (%) (Auto) 74.5 % Lymphocytes (%) (Auto) 8.5 % Monocytes (%) (Auto) 14.0 % Eosinophils (%) (Auto) 2.6 % Basophils (%) (Auto) 0.2 % Neutrophils # (Auto) 4.90 K/uL Lymphocytes # (Auto) 0.56 K/uL Monocytes # (Auto) 0.92 K/uL Eosinophils # (Auto) 0.17 K/uL Basophils # (Auto) 0.01 K/uL Assessment & Plan Assessment: LEFT HIP FRACTURE Plan: FOR LEFT NICK VS BIPOLAR HEMIARTHROPLASTY TODAY (last dose of Apixaban was 07/16/16 per Anesthesia note)
[2016-07-19] MEDS: BOOST VANILLA PO SCH ×4 (08:36→19:49)
[2016-07-19] MEDS: CHOLECALCIFEROL 1000 INTER.UNIT TAB PO SCH (08:36)
[2016-07-19] MEDS: MAGNESIUM OXIDE 400 MG TAB PO SCH (08:36)
[2016-07-19] MEDS: MULTIVITAMIN TAB PO SCH (08:36)
[2016-07-19] MEDS: CYCLOBENZAPRINE HCL 5 MG TAB PO PRN (09:43)
[2016-07-19] MEDS: OXYCODONE HCL IR 5 MG TAB (IMMEDIATE RELEASE) PO PRN (10:54)
[2016-07-19] MEDS ORDERED: CEFAZOLIN IV 1,000 MG in DEXTROSE 5% 50ML 50 ML IV ONE (12:00)
[2016-07-19] MEDS ORDERED: MIDAZOLAM HCL 1 MG/ML 2ML VIAL ONE (12:45)
--- NOTE | 2016-07-19 12:51 | History & Physical Bridge Note ---
H&P Re-Evaluation Bridge Note: I have examined the patient, reviewed the History & Physical and in the interval since the performance of the History & Physical I have noted the following changes of clinical significance: No changes noted
[2016-07-19] MEDS ORDERED: BACITRACIN 50000 UNIT VIAL ONE (13:30)
[2016-07-19] MEDS ORDERED: POVIDONE-IODINE OP SOLN 30 ML BTL ONE (13:30)
[2016-07-19] MEDS ORDERED: PROPOFOL IV EMULSION 10 MG/ML 20 ML VIAL IV ONE (14:05)
[2016-07-19] MEDS ORDERED: LIDOCAINE HCL 2% 2 ML VIAL (20MG/ML) ONE (14:05)
[2016-07-19] MEDS ORDERED: FENTANYL CITRATE INJ 50 MCG/1 ML 2 ML VIAL ONE (14:06)
[2016-07-19] MEDS ORDERED: POLYMYXIN B SULFATE 100,000 UNITS in NSS 100ML IR SCH (14:30)
[2016-07-19] MEDS ORDERED: VANCOMYCIN INJ 400 MG in NSS 100ML IR SCH (14:30)
[2016-07-19] MEDS ORDERED: EpHEDrine SULFATE INJ 50 MG/ML AMP IV PRN (15:00)
[2016-07-19] MEDS ORDERED: ATROPINE SULFATE 0.1 MG/ML 5ML SYR IV PRN (15:00)
[2016-07-19] MEDS ORDERED: FENTANYL CITRATE INJ 50 MCG/1 ML 2 ML VIAL IV PRN (15:00)
[2016-07-19] MEDS ORDERED: ONDANSETRON INJ 2 MG/ML 2 ML VIAL IV PRN (15:00)
[2016-07-19] MEDS ORDERED: ROPIVACAINE 5MG/ML 30 ML 150 MG, BUPIVACAINE/EPINEPHR 0.5% MPF 30 ML, KETOROLAC TROMETH... INFIL ONE ×7 (15:30)
--- NOTE | 2016-07-19 15:34 | Progress Note ---
Internal Med Progress Note Date of Service: Jul 19, 2016. Provider Documentation: SUBJECTIVE: Seen and examined post OP. Had left hip arthroplasty today. Denies any chest pain, SOB. Denies any pain currently. Offers no complaints. OBJECTIVE: Vital Signs-as noted below Physical Exam: General Appearance:Moderately built and nourished, no apparent distress Head: normocephalic, Atraumatic Eyes: normal inspection, EOMI, PERRL Neck: supple, Trachea midline Respiratory/Chest: Normal breath sounds, CTA Cardiovascular: S1, S2, No murmur Abdomen/GI:Soft, Non tender, Bowel sounds present Extremities/Musculoskelatal:normal inspection, Left LE surgical site in bandage. Neurologic/Psych:grossly no focal neurological deficits Skin: normal color, warm Lab data as noted below. ASSESSMENT & PLAN: TRAUMATIC OSTEOPOROTIC LEFT FEMORAL NECK FRACTURE In setting of elderly female S/p mechanical fall Good functional status at baseline ECHO: EF:55-60%. No regional wall motion abnormalities Patient on Eliquis for H/O DVT, currently on hold for surgery Appreciate Ortho input Pain control, Flexeril PRN for spasms S/P left hip arthroplasty POD # 0 ELEVATED BP Situational No H/O hypertension Continue pain control Monitor DYSLIPIDEMIA Continue statin H/O DVT RLE DVT unprovoked in 2014 Hold Eliquis for now Per Dr. Travis's recommendation, when Eliquis is resumed the correct dosing would be 2.5 mg BID for DVT >6 months ago Plan to resume Eliquis tomorrow. DVT Px: SCD's CODE STATUS Full code PROCEDURES: ECHO: * Ejection Fraction = 55-60%. * There is mild concentric left ventricular hypertrophy. * No regional wall motion abnormalities noted. * Grade I diastolic dysfunction, (abnormal relaxation pattern). * Aortic valve sclerosis mild, without significant aortic valvular stenosis. * Mild aortic regurgitation. Vital Signs: Date Time Temp Pulse Resp B/P (MAP) Pulse Ox O2 Delivery O2 Flow Rate FiO2 07/19/16 17:10 86 15 110/61 93 Nasal Cannula 4 07/19/16 17:00 36.4 85 14 137/68 95 Nasal Cannula 4 07/19/16 16:50 84 13 114/72 94 Nasal Cannula 4 07/19/16 16:40 84 19 125/73 95 Mask 10 07/19/16 16:30 37.5 90 13 136/69 95 Mask 10 07/19/16 11:28 37.3 88 20 177/87 (117) 91 Room Air 07/19/16 07:10 Nasal Cannula 2.0 Humidified Oxygen 07/19/16 06:52 37.0 81 18 159/74 (102) 92 Nasal Cannula 2.0 Humidified Oxygen 07/19/16 01:59 155/74 (101) 07/19/16 00:15 Nasal Cannula 2.0 Humidified Air 07/18/16 23:27 37.5 81 16 164/72 (102) 91 Nasal Cannula 2.0 Humidified Air Lab Results: Results Past 24 Hours Test 07/19/16 05:51 Range/Units White Blood Count 6.57 4.8-10.8 K/uL Red Blood Count 4.01 4.2-5.4 M/uL Hemoglobin 12.5 12.0-16.0 g/dL Hematocrit 37.3 37-47 % Mean Corpuscular Volume 93.0 80-100 fL Mean Corpuscular Hemoglobin 31.2 25-34 pg Mean Corpuscular Hemoglobin Concent 33.5 32-36 g/dl Platelet Count 158 130-400 K/uL Mean Platelet Volume 9.4 7.4-10.4 fL Neutrophils (%) (Auto) 74.5 % Lymphocytes (%) (Auto) 8.5 % Monocytes (%) (Auto) 14.0 % Eosinophils (%) (Auto) 2.6 % Basophils (%) (Auto) 0.2 % Neutrophils # (Auto) 4.90 1.4-6.5 K/uL Lymphocytes # (Auto) 0.56 1.2-3.4 K/uL Monocytes # (Auto) 0.92 0.11-0.59 K/uL Eosinophils # (Auto) 0.17 0-0.5 K/uL Basophils # (Auto) 0.01 0-0.2 K/uL RDW Standard Deviation 42.9 36.4-46.3 fL RDW Coefficient of Variation 12.6 11.5-14.5 % Immature Granulocyte % (Auto) 0.2 % Immature Granulocyte # (Auto) 0.01 0.00-0.02 K/uL Sodium Level 132 136-145 mmol/L Potassium Level 3.9 3.5-5.1 mmol/L Chloride Level 96 98-107 mmol/L Carbon Dioxide Level 29 21-32 mmol/L Anion Gap 7.0 3-11 mmol/L Blood Urea Nitrogen 11 7-18 mg/dl Creatinine 0.48 0.60-1.20 mg/dl Est Creatinine Clear Calc Drug Dose 85.6 ml/min Estimated GFR () 102.9 Estimated GFR (Non- 88.8 BUN/Creatinine Ratio 23.9 10-20 Random Glucose 121 70-99 mg/dl Calcium Level 8.7 8.5-10.1 mg/dl
--- NOTE | 2016-07-19 16:09 | [facility] Post Operative Brief Note ---
Immediate Operative Summary Operative Date Jul 19, 2016. Pre-Operative Diagnosis Left Hip Acute Displaced Femoral Neck fracture, Posttraumatic Post-Operative Diagnosis Left Hip Acute Displaced Femoral Neck fracture, Posttraumatic Procedure(s) Performed Left Total Hip Arthroplasty--Cemented, Direct Anterior Approach Surgeon Dr. 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 Left Femoral Head Complication(s) None Disposition Recovery Room / PACU
[2016-07-19] MEDS ORDERED: MAGNESIUM HYDROXIDE SUSP 30 ML UDC PO PRN (16:15)
[2016-07-19] MEDS ORDERED: BISACODYL 10 MG SUPP PR PRN (16:15)
[2016-07-19] MEDS ORDERED: HYDROmorphone INJ 1 MG/ML SYR IV PRN ×2 (16:15)
[2016-07-19] MEDS ORDERED: SOD PHOSPHATE/SOD BIPHOSPHATE ENEMA 132 ML BTL PR PRN (16:15)
--- NOTE | 2016-07-19 16:15 | DIAGNOSTIC IMAGING REPORT ---
INTRAOPERATIVE FLUOROSCOPIC IMAGE OF THE LEFT HIP CLINICAL HISTORY: Total left hip arthroplasty. COMPARISON STUDY: Pelvis and left hip radiographs July 16, 2016. Fluoroscopy time: 13 seconds. FINDINGS: 2 intraoperative fluoroscopic images of the left hip demonstrate expected intraoperative findings during a left hip arthroplasty. Distal aspect of the femoral component was not imaged. There is an acetabular screw. No fracture is identified. There is no unexpected radiopaque foreign body. IMPRESSION: Expected intraoperative findings during total left hip arthroplasty. Electronically signed by: Roberto Marmolejo M.D. 07/19/2016 4:14 PM Dictated Date/Time: 07/19/2016 4:10 PM
--- NOTE | 2016-07-19 16:49 | DIAGNOSTIC IMAGING REPORT ---
LEFT HIP UNILATERAL 2 VIEWS CLINICAL HISTORY: Postoperative evaluation. COMPARISON: Pelvis and left hip radiographs July 16, 2016. FINDINGS: Alignment of the total left hip arthroplasty is anatomic. There is no periprosthetic fracture. No unexpected radiopaque foreign body is present. IMPRESSION: Expected findings following total left hip arthroplasty. Electronically signed by: Roberto Marmolejo M.D. 07/19/2016 4:48 PM Dictated Date/Time: 07/19/2016 4:46 PM
[2016-07-19] MEDS: D5W AND NSS 1,000 ML IV SCH (17:33)
--- NOTE | 2016-07-19 17:55 | OPERATIVE REPORT ---
DATE OF OPERATION: 07/19/2016 PREOPERATIVE DIAGNOSIS: Displaced subcapital fracture, left hip. POSTOPERATIVE DIAGNOSIS: Same. PROCEDURE: Left cemented total hip replacement. SURGEON: Benton Rabago MD DEVICE TEST ENGINEER: JOSEPH Velasquez ANESTHESIA: Spinal. BLOOD LOSS: 50 mL. REPLACEMENT FLUIDS: 1500 mL crystalloid. DRAINS: Hemovac x2. CULTURES: None. COMPLICATIONS: None. COMPONENTS USED: [employer] cemented stem, acetabulum size 50, femur size 1, high offset, femoral head 0, neck length 32 mm. NOTE: JOSEPH Velasquez was present and assisted throughout due to the complicated nature of this case. He helped with preparation and set up, first assisted throughout and personally closed the fascial, subcutaneous and skin layers and applied the postoperative dressing. DESCRIPTION OF PROCEDURE: Following satisfactory spinal, patient was supine. The left hip was placed in the traction device and the right leg in the well leg frederick. The left leg was prepared with ChloraPrep and draped sterilely. Following a surgical time-out, an anterior approach was performed in the interval between the sartorius and tensor muscles. The circumflex femoral vessels were identified and ligated. An anterior capsulotomy was performed exposing the fractured femoral neck and head. The femoral neck and head were trimmed and the fractured head was removed. The acetabular self-retraining retractor was placed. Acetabular preparation was completed and after reaming with fluoroscopy, a 50 shell was impacted into an anatomic position and secured with a dome screw. Local anesthetic was placed and after irrigation, the polyethylene liner was placed. The femur was placed into a position of external rotation, extension and adduction. Femoral canal was prepared up to the size 1. A trial reduction with a 0 neck length head using fluoroscopy showed congregational of leg lengths using fluoroscopic landmarks. The trial component was removed after dislocation. A cement restriction plug was placed, the stem was then cemented using Simplex G cement. A Betadine soak was performed while the cement was hardening. When the cement had hardened, the Betadine was irrigated, 0 neck trial again showed good leg length and stability and was therefore placed, the hip was reduced and fluoroscopy confirmed the position. After irrigation, the capsule was closed with 1-0 Vicryl interrupted. A drain was then placed. The fascia was closed with a running suture of 1 Vicryl, the subcutaneous tissue with 2-0 Vicryl and the skin with a running subcuticular stitch of 3-0 V-Loc. Dermabond and a dry dressing were applied. The patient was returned to her bed in stable condition. I attest to the content of the Intraoperative Record and any orders documented therein. Any exception s are noted below.
[2016-07-19] MEDS: ATORVASTATIN 20 MG TAB PO SCH (20:43)
[2016-07-19] MEDS: DOCUSATE SODIUM/SENNA 50/8.6MG TAB PO SCH (20:43)
[2016-07-19] MEDS: CEFAZOLIN IV 1,000 MG in DEXTROSE 5% 50ML 50 ML IV SCH (22:12)
[2016-07-20] MEDS: D5W AND NSS 1,000 ML IV SCH ×2 (01:35→12:19)
[2016-07-20 03:17] VITALS: BP 123/64; PULSE 80; TEMP 37; O2SAT 94
[2016-07-20] MEDS: CEFAZOLIN IV 1,000 MG in DEXTROSE 5% 50ML 50 ML IV SCH (05:34)
[2016-07-20] MEDS: OXYCODONE HCL IR 5 MG TAB (IMMEDIATE RELEASE) PO PRN (05:35)
[2016-07-20 06:16] LABS: BASO % 0.1 %; BASO ABS # 0.01 K/uL (0-0.2); COMPLETE YES; EOS % 0.7 %; HEMATOCRIT 33.8 % (37-47); IG% 0.1 %; LYMPH % 8.9 %; MEAN CELL VOLUME 91.8 fL (80-100); MEAN CORPUSCULAR HGB CONC 33.7 g/dl (32-36); MEAN PLATELET VOLUME 9.6 fL (7.4-10.4); MONO % 12.2 %; PLATELET COUNT 159 K/uL (130-400); RED BLOOD COUNT 3.68 M/uL (4.2-5.4); WHITE BLOOD COUNT 6.71 K/uL (4.8-10.8)
[2016-07-20 06:49] LABS: BUN/CREATININE RATIO 29.2 (10-20); CALCIUM 9.1 mg/dl (8.5-10.1); CREATININE 0.51 mg/dl (0.60-1.20); POTASSIUM 3.9 mmol/L (3.5-5.1)
[2016-07-20 07:28] VITALS: BP 135/73; PULSE 92; TEMP 36.9; O2SAT 92
[2016-07-20] MEDS: CHOLECALCIFEROL 1000 INTER.UNIT TAB PO SCH (09:03)
[2016-07-20] MEDS: MULTIVITAMIN TAB PO SCH (09:03)
[2016-07-20] MEDS: MAGNESIUM OXIDE 400 MG TAB PO SCH (09:03)
[2016-07-20] MEDS: BOOST VANILLA PO SCH ×4 (09:03→19:42)
[2016-07-20 15:52] VITALS: BP 161/83; PULSE 91; TEMP 36.9; O2SAT 91
[2016-07-20 16:00] VITALS: O2SAT 92
--- NOTE | 2016-07-20 16:44 | Orthopedic Progress Note ---
Orthopedic Progress Note Date of Service Jul 20, 2016. Subjective Post OP Day: 1 Reports: feeling well, Denies: chest pain, SOB, nausea / vomiting, light headedness, calf pain Additional Notes: Pt awake, alert. Family present. Pt still on O2 and being weaned off. She is somewhat painful with moving around but pain is controlled at rest. Objective calves soft nontender, N/V intact, dressing C/D/I, A&O x3, toes mobile Date Time Temp Pulse Resp B/P (MAP) Pulse Ox O2 Delivery O2 Flow Rate FiO2 07/20/16 15:52 36.9 91 18 161/83 (109) 91 2.0 07/20/16 08:28 Nasal Cannula 4.0 07/20/16 07:28 36.9 92 16 135/73 (93) 92 Humidified Oxygen 5.0 07/20/16 03:17 37.0 80 15 123/64 (83) 94 Nasal Cannula 4.0 07/20/16 00:30 Nasal Cannula 4.0 07/19/16 23:45 37.0 85 18 120/63 (82) 94 Nasal Cannula 4.0 Humidified Oxygen 07/19/16 20:20 36.8 91 20 125/68 (87) 91 Nasal Cannula 4.0 07/19/16 19:40 37.8 07/19/16 19:20 36.8 83 16 119/68 (85) 91 Nasal Cannula 4.0 07/19/16 18:20 37.2 85 20 133/70 (91) 97 Nasal Cannula 4.0 07/19/16 17:50 36.8 83 18 116/71 (86) 96 Nasal Cannula 4.0 07/19/16 17:20 98 Nasal Cannula 4.0 07/19/16 17:20 36.8 92 16 130/85 (100) 92 Nasal Cannula 4.0 07/19/16 17:20 92 Nasal Cannula 4.0 07/19/16 17:10 86 15 110/61 93 Nasal Cannula 4 07/19/16 17:00 36.4 85 14 137/68 95 Nasal Cannula 4 07/19/16 16:50 84 13 114/72 94 Nasal Cannula 4 07/19/16 16:40 84 19 125/73 95 Mask 10 Laboratory Results 24 Hours: Test 07/20/16 06:04 White Blood Count 6.71 K/uL Red Blood Count 3.68 M/uL Hemoglobin 11.4 g/dL Hematocrit 33.8 % Mean Corpuscular Volume 91.8 fL Mean Corpuscular Hemoglobin 31.0 pg Mean Corpuscular Hemoglobin Concent 33.7 g/dl Platelet Count 159 K/uL Mean Platelet Volume 9.6 fL Neutrophils (%) (Auto) 78.0 % Lymphocytes (%) (Auto) 8.9 % Monocytes (%) (Auto) 12.2 % Eosinophils (%) (Auto) 0.7 % Basophils (%) (Auto) 0.1 % Neutrophils # (Auto) 5.22 K/uL Lymphocytes # (Auto) 0.60 K/uL Monocytes # (Auto) 0.82 K/uL Eosinophils # (Auto) 0.05 K/uL Basophils # (Auto) 0.01 K/uL Assessment & Plan Assessment: POD 1 s/p Left NICK Plan: PT/OT Pain managment Medical Management per [facility] Hospitalist Service Inhouse Planning Pain Management: Dilaudid, Oxy IR DVT Prophylaxis: TEDs, SCDs, other (Apixaban) Discharge Planning [place] [facility] [place] [facility])
--- NOTE | 2016-07-20 17:26 | DIAGNOSTIC IMAGING REPORT ---
CHEST ONE VIEW PORTABLE CLINICAL HISTORY: Shortness of breath, hypoxia. COMPARISON STUDY: 07/16/2016 FINDINGS: The heart is mildly enlarged. There is mild central vascular prominence without evidence of overt failure. There is no lobar consolidation. There is prominence of central pulmonary arteries. Pulmonary artery hypertension cannot be excluded.[ There is mild basilar atelectasis IMPRESSION: Borderline cardiomegaly with central vascular prominence but no evidence of overt failure. No evidence of lobar consolidation. Mild basilar atelectasis Electronically signed by: Severiano Villegas M.D. 07/20/2016 5:24 PM Dictated Date/Time: 07/20/2016 5:23 PM
--- NOTE | 2016-07-20 17:40 | Progress Note ---
Internal Med Progress Note Date of Service: Jul 20, 2016. Provider Documentation: SUBJECTIVE: offers no complain , denies of SOB requiring 4 L 02 ( was not on home 02 prior to admission ) oxygen weaned down to 2 L maintains Spo2 > 92% has some pain on left hip with movement had PT today OBJECTIVE: Vital Signs-as noted below Exam: General-no sign of distress Eyes-sclera non icteric Lungs-faint crackles at base Heart-regular S1/S2 Abdomen-soft, non tender Extremities-no lower ext edema , healing wound on left hip surgical site Neuro-no focal deficit Lab data as noted below. ASSESSMENT & PLAN: TRAUMATIC OSTEOPOROTIC LEFT FEMORAL NECK FRACTURE In setting of elderly female S/p mechanical fall Good functional status at baseline ECHO: EF:55-60%. No regional wall motion abnormalities Patient on Eliquis for H/O DVT, currently on hold for surgery Appreciate Ortho input Pain control, Flexeril PRN for spasms S/P left hip arthroplasty POD # 1 PT/OT ordered Eliquis resumed by Ortho HYPOXIA: requiring supplemental 02 at baseline pt was not on home 02 IVF d/shu ECHO shows diastolic dysfunction ordered for CXray cont incentive spirometry cont to wean off 02 as tolerated ELEVATED BP Situational No H/O hypertension Continue pain control Monitor DYSLIPIDEMIA Continue statin H/O DVT RLE DVT unprovoked in 2014 Hold Eliquis for now Per Dr. Travis's recommendation, when Eliquis is resumed the correct dosing would be 2.5 mg BID for DVT >6 months ago Eliquis resumed today . DVT Px: Eliquis CODE STATUS Full code PROCEDURES: ECHO: * Ejection Fraction = 55-60%. * There is mild concentric left ventricular hypertrophy. * No regional wall motion abnormalities noted. * Grade I diastolic dysfunction, (abnormal relaxation pattern). * Aortic valve sclerosis mild, without significant aortic valvular stenosis. * Mild aortic regurgitation. DISPOSITION will need rehab possible need to be at [facility] for rehab when medically stable Daughters present at bedside updated Vital Signs: Date Time Temp Pulse Resp B/P (MAP) Pulse Ox O2 Delivery O2 Flow Rate FiO2 07/20/16 16:00 92 Oxymask 2.0 07/20/16 15:52 36.9 91 18 161/83 (109) 91 2.0 07/20/16 08:28 Nasal Cannula 4.0 07/20/16 07:28 36.9 92 16 135/73 (93) 92 Humidified Oxygen 5.0 07/20/16 03:17 37.0 80 15 123/64 (83) 94 Nasal Cannula 4.0 07/20/16 00:30 Nasal Cannula 4.0 07/19/16 23:45 37.0 85 18 120/63 (82) 94 Nasal Cannula 4.0 Humidified Oxygen 07/19/16 20:20 36.8 91 20 125/68 (87) 91 Nasal Cannula 4.0 07/19/16 19:40 37.8 07/19/16 19:20 36.8 83 16 119/68 (85) 91 Nasal Cannula 4.0 07/19/16 18:20 37.2 85 20 133/70 (91) 97 Nasal Cannula 4.0 07/19/16 17:50 36.8 83 18 116/71 (86) 96 Nasal Cannula 4.0 Lab Results: Results Past 24 Hours Test 07/20/16 06:04 Range/Units White Blood Count 6.71 4.8-10.8 K/uL Red Blood Count 3.68 4.2-5.4 M/uL Hemoglobin 11.4 12.0-16.0 g/dL Hematocrit 33.8 37-47 % Mean Corpuscular Volume 91.8 80-100 fL Mean Corpuscular Hemoglobin 31.0 25-34 pg Mean Corpuscular Hemoglobin Concent 33.7 32-36 g/dl Platelet Count 159 130-400 K/uL Mean Platelet Volume 9.6 7.4-10.4 fL Neutrophils (%) (Auto) 78.0 % Lymphocytes (%) (Auto) 8.9 % Monocytes (%) (Auto) 12.2 % Eosinophils (%) (Auto) 0.7 % Basophils (%) (Auto) 0.1 % Neutrophils # (Auto) 5.22 1.4-6.5 K/uL Lymphocytes # (Auto) 0.60 1.2-3.4 K/uL Monocytes # (Auto) 0.82 0.11-0.59 K/uL Eosinophils # (Auto) 0.05 0-0.5 K/uL Basophils # (Auto) 0.01 0-0.2 K/uL RDW Standard Deviation 42.6 36.4-46.3 fL RDW Coefficient of Variation 12.6 11.5-14.5 % Immature Granulocyte % (Auto) 0.1 % Immature Granulocyte # (Auto) 0.01 0.00-0.02 K/uL Sodium Level 133 136-145 mmol/L Potassium Level 3.9 3.5-5.1 mmol/L Chloride Level 99 98-107 mmol/L Carbon Dioxide Level 27 21-32 mmol/L Anion Gap 7.0 3-11 mmol/L Blood Urea Nitrogen 15 7-18 mg/dl Creatinine 0.51 0.60-1.20 mg/dl Est Creatinine Clear Calc Drug Dose 80.6 ml/min Estimated GFR () 100.9 Estimated GFR (Non- 87.1 BUN/Creatinine Ratio 29.2 10-20 Random Glucose 136 70-99 mg/dl Calcium Level 9.1 8.5-10.1 mg/dl
[2016-07-20] MEDS ORDERED: FUROSEMIDE INJ 20 MG in SYRINGE 0 ML IV ONE (18:30)
--- NOTE | 2016-07-20 18:31 | Progress Note ---
Progress Note Date of Service Jul 20, 2016. Progress Note ATTENDING NOTE: pt's chest xray shows mild pulmonary congestion I's /O's shows + ve balance of approx > 1900 ECHO : grand 1 diastolic dysfunction possible acute CHF with diastolic dysfunction due to IVF causing hypoxia IVF D/shu earlier ordered for IV Lasix 20 mg IV X1 Olivera ordered for accurate measure of I's /O's repeat Cxray in AM Daughters updated at bedside
[2016-07-20] MEDS: DOCUSATE SODIUM/SENNA 50/8.6MG TAB PO SCH (21:00)
[2016-07-20] MEDS: APIXABAN 2.5 MG TAB PO SCH (21:22)
[2016-07-20] MEDS: ATORVASTATIN 20 MG TAB PO SCH (21:22)
[2016-07-20 23:22] VITALS: PULSE 86; TEMP 37.5; O2SAT 94
[2016-07-20 23:26] VITALS: BP 137/64
[2016-07-21] VITALS (9 sets, daily range): BP systolic 95–160; BP diastolic 60–78; PULSE 74–95; TEMP 36.6–37.5; O2SAT 92–94
[2016-07-21] MEDS ORDERED: NURSING VERBAL MED ORDER ONE (04:45)
[2016-07-21] MEDS ORDERED: POLYETHYLENE (MIRALAX) 17 GM PACK PO SCH (06:00)
[2016-07-21] MEDS: OXYCODONE HCL IR 5 MG TAB (IMMEDIATE RELEASE) PO PRN ×2 (06:15→20:43)
--- NOTE | 2016-07-21 07:58 | Orthopedic Progress Note ---
Orthopedic Progress Note Date of Service Jul 21, 2016. Subjective Post OP Day: 2 (L NICK ) Reports: feeling well, pain controlled w PO medications, Denies: complaints, chest pain, SOB, nausea / vomiting Objective calves soft nontender, N/V intact, hip located, dressing C/D/I, A&O x3, toes mobile Date Time Temp Pulse Resp B/P (MAP) Pulse Ox O2 Delivery O2 Flow Rate FiO2 07/21/16 00:30 92 Nasal Cannula 2.0 Humidified Oxygen 07/20/16 23:26 137/64 (88) 07/20/16 23:22 37.5 86 18 94 Nasal Cannula 3.0 Humidified Oxygen 07/20/16 16:00 92 Oxymask 2.0 07/20/16 15:52 36.9 91 18 161/83 (109) 91 2.0 07/20/16 08:28 Nasal Cannula 4.0 Assessment & Plan Assessment: POD 2 s/p Left NICK Plan: PT/OT Pain managment Medical Management per [facility] Hospitalist Service DIURESING FOR FLUID OVERLOAD Inhouse Planning Pain Management: Dilaudid, PO Tylenol, Oxy IR DVT Prophylaxis: TEDs, SCDs, other (Apixaban) Discharge Planning Discharge Planning: shelter facility ([facility])
--- NOTE | 2016-07-21 08:13 | DIAGNOSTIC IMAGING REPORT ---
CHEST ONE VIEW PORTABLE HISTORY: Short of breath. COMPARISON: Chest 07/20/2016. FINDINGS: Bibasilar linear densities consistent with scarring or subsegmental atelectasis. This is not significantly changed. No new focal lung consolidations. Diffuse interstitial thickening and mild cardiomegaly persist. No pneumothorax. No pleural effusions. A 1.1 cm right suprahilar nodular density. This may be due to the overlapping ribs. IMPRESSION: 1. Mild cardiomegaly, unchanged. 2. Bibasilar linear densities suggesting subsegmental atelectasis. 3. A 1.1 cm right suprahilar nodular density. This may be due to the overlapping first rib. Follow-up PA and lateral views of the chest are recommended for confirmation. Electronically signed by: Diony Romeo M.D. 07/21/2016 8:12 AM Dictated Date/Time: 07/21/2016 8:09 AM
[2016-07-21] MEDS: MAGNESIUM OXIDE 400 MG TAB PO SCH (08:45)
[2016-07-21] MEDS: APIXABAN 2.5 MG TAB PO SCH ×2 (08:45→20:42)
[2016-07-21] MEDS: CHOLECALCIFEROL 1000 INTER.UNIT TAB PO SCH (08:46)
[2016-07-21] MEDS: MULTIVITAMIN TAB PO SCH (08:46)
[2016-07-21] MEDS ORDERED: ALBUT/IPRATROP 3MG/0.5MG NEB 3 ML VIAL INH SCH (09:00)
[2016-07-21] MEDS ORDERED: OPTIRAY 320 IV PRN (09:00)
--- NOTE | 2016-07-21 09:01 | Progress Note ---
Internal Med Progress Note Date of Service: Jul 21, 2016. Provider Documentation: SUBJECTIVE: feels fine this am offers no complain of SOB or chest discomfort has persisted hypoxia desaturates 88 % in RA , improves with 3 L 02 supplement diureses ~400 ml overnight with IV 20 mg Lasix negative balance of 100 ml OBJECTIVE: Vital Signs-as noted below Exam: General-no sign of distress Eyes-sclera non icteric Lungs-faint crackles at base Heart-regular S1/S2 Abdomen-soft, non tender Extremities-no lower ext edema , healing wound on left hip surgical site ; has small skin tear on left buttock , clean base , possible from the fall Neuro-no focal deficit Lab data as noted below. ASSESSMENT & PLAN: PERSISTENT HYPOXIA: requiring supplemental 3 L O2 desaturating in RA at baseline pt was not on home 02 Lasix ordered yesterday for concern for possible vol overload diuresed , still remains hypoxic Cxray today : no pulmonary vascular congestion notes, interstitial prominence noted Pulmonology consult requested Discussed case with Dr Wolfe sudden onset of hypoxemia in setting of recent hip Fx concern for pulmonary embolism remains high ( pt was off from anticoagulation for > 48 hx of Hip surgery ) CTA of chest for PE ordered will order lower ext Doppler to r/o DVT pt is already on Eliquis ACUTE CHF WITH DIASTOLIC FAILURE: ECHO ; grade 1 diastolic dysfunction pt was given Lasix for vol overload adequate diuresis still requiring 3 L 02 /persistent hypoxia CTA of chest ordered cont to monitor vol status ordered for fluid restriction 1500 ml /day cont Olivera for accurate measuring of I's /O's can be d/c prior to discharge to rehab HYPONATREMIA /HYPOKALEMIA : due to diuresis ? ordered for K replacement fluid restriction ordered follow PRP TRAUMATIC OSTEOPOROTIC LEFT FEMORAL NECK FRACTURE In setting of elderly female S/p mechanical fall Good functional status at baseline ECHO: EF:55-60%. No regional wall motion abnormalities Appreciate Ortho input Pain control, Flexeril PRN for spasms S/P left hip arthroplasty POD # 2 PT/OT ordered Eliquis resumed by Ortho Ortho following can be transferred to Rehab once respiratory status improves SMALL SKIN TEAR ON LEFT BUTTOCK : due to fall cont local wound care wound care nurse consulted H/O DVT RLE DVT unprovoked in 2014 Hold Eliquis for now Per Dr. Travis's recommendation, when Eliquis is resumed the correct dosing would be 2.5 mg BID for DVT >6 months ago Eliquis resumed will check lower ext Doppler-eval for DVT /CTA of chest to RO PE DVT Px: Eliquis CODE STATUS Full code PROCEDURES: ECHO: * Ejection Fraction = 55-60%. * There is mild concentric left ventricular hypertrophy. * No regional wall motion abnormalities noted. * Grade I diastolic dysfunction, (abnormal relaxation pattern). * Aortic valve sclerosis mild, without significant aortic valvular stenosis. * Mild aortic regurgitation. DISPOSITION will need rehab [facility] for rehab when medically stable Daughter updated over phone Vital Signs: Date Time Temp Pulse Resp B/P (MAP) Pulse Ox O2 Delivery O2 Flow Rate FiO2 07/21/16 08:14 93 Mask 07/21/16 07:58 37.2 74 20 138/70 (92) 93 Room Air 07/21/16 07:30 Nasal Cannula 3.0 07/21/16 00:30 92 Nasal Cannula 2.0 Humidified Oxygen 07/20/16 23:26 137/64 (88) 07/20/16 23:22 37.5 86 18 94 Nasal Cannula 3.0 Humidified Oxygen 07/20/16 16:00 92 Oxymask 2.0 07/20/16 15:52 36.9 91 18 161/83 (109) 91 2.0 Lab Results: Results Past 24 Hours Test 07/21/16 09:51 07/21/16 12:42 07/21/16 12:54 Range/Units Sodium Level 129 136-145 mmol/L Potassium Level 3.2 3.5-5.1 mmol/L Chloride Level 93 98-107 mmol/L Carbon Dioxide Level 29 21-32 mmol/L Anion Gap 7.0 3-11 mmol/L Blood Urea Nitrogen 13 7-18 mg/dl Creatinine 0.44 0.60-1.20 mg/dl Est Creatinine Clear Calc Drug Dose 93.4 ml/min Estimated GFR () 105.9 Estimated GFR (Non- 91.4 BUN/Creatinine Ratio 29.7 10-20 Random Glucose 129 70-99 mg/dl Calcium Level 8.2 8.5-10.1 mg/dl
[2016-07-21] MEDS ORDERED: ALBUT/IPRATROP 3MG/0.5MG NEB 3 ML VIAL INH PRN ×2 (09:45→12:00)
[2016-07-21] MEDS: BOOST VANILLA PO SCH ×4 (10:50→19:05)
[2016-07-21 10:56] LABS: BUN/CREATININE RATIO 29.7 (10-20); CALCIUM 8.2 mg/dl (8.5-10.1); CREATININE 0.44 mg/dl (0.60-1.20); POTASSIUM 3.2 mmol/L (3.5-5.1)
--- NOTE | 2016-07-21 11:32 | Consultant Recommendations ---
Education Reviewer Recommendations Date of Service Jul 21, 2016. Education Reviewer Recommendations ACTIVITY RECOMMENDATIONS: SELF CARE INSTRUCTIONS AFTER TOTAL HIP REPLACEMENT : Direct Anterior Approach Until the incision and soft tissues around your hip have healed, there is a possibility that the hip prosthesis could dislocate. A. Hip flexion ( Up & Down out of chair or steps ) may be difficult. This is normal. B. Numbness in front of the thigh is also normal for a few weeks. C. Use hand rails when walking on stairs. D. Wear low heeled shoes with non-slip soles. E. Be sure that your floors are free of things that could trip you - throw rugs , electrical cords, small objects. Avoid wet and waxed floors, especially with crutches and canes. F. Try to walk several times a day with rest periods between. G. Continue with all the exercises taught to you in the hospital. Again, make walking a part of your daily routine. SPECIAL CARE INSTRUCTIONS: VERY IMPORTANT TO READ AND REVIEW A. You may still be at risk for phlebitis and blood clots. 1. Wear surgical stockings (ARABELLA hose) for 2 weeks after surgery to improve circulation and reduce swelling. 2. Take Apixaban twice daily or as directed by your doctor. This is your blood thinner. 3. High risk patients may be prescribed a stronger blood thinner if necessary. 4. If you are on Coumadin normally, your family doctor/insulation mechanic should monitor your blood work. Expect a phone call the day of or the day after bloodwork is drawn to adjust your dosage. B. You must take antibiotics before having dental work, bladder, bowel and other surgery. Your doctor will provide you with a permanent card to carry describing precautions. C. Call [facility] if you have a fever, redness or swelling around the incision, cloudy drainage from incision, or sudden increase in pain in your hip, not relieved by your regular pain medication. D. Please call the office at if you have any concerns or questions about your operation or recovery. * YOU MAY SHOWER, NO TUB BATHS UNTIL CLEARED BY YOUR DOCTOR. - Keep an extra close eye on the top portion of your incision. Be sure to keep clean & dry. * WEAR ARABELLA HOSE 20 HOURS PER DAY FOR 2 WEEKS. * YOU MAY PROGRESS FROM A WALKER, TO A CANE, TO INDEPENDENT AT YOUR OWN PACE. * MOST PATIENTS WILL HAVE HOME NURSING FOR THERAPY. IF YOU DECIDE TO DO OUTPATIENT PHYSICAL THERAPY, PLEASE SCHEDULE THIS 3 TIMES PER WEEK. * DERMABOND Prineo- This is a mesh tape dressing that is covered with glue. It should remain in place until the incision is properly healed, usually 10-14 days. This dressing is designed to naturally slough off. You may trim the excess mesh tape as it peels off. Incision may be briefly wet in a shower. Dry immediately by blotting with a clean, dry towel. Do not bath or swim until instructed by your doctor. Do not scratch, rub, or pick at the dressing. Do not apply any topical ointments or lotions until dressing is completely removed and/or instructed by your doctor. There may be a small piece of suture material at one end of your incision. Do not pull or trim this. If it is bothersome or catching on clothing, you may cover it with a band-aid. FOLLOW UP VISIT: If appointment is not already scheduled: Please call [facility] to make a follow-up appointment for 2 weeks after your surgery at .
--- NOTE | 2016-07-21 12:32 | DIAGNOSTIC IMAGING REPORT ---
CT ANGIOGRAM OF THE CHEST CLINICAL HISTORY: Hypoxia. History of hip fracture. COMPARISON STUDY: 02/02/2014 TECHNIQUE: Following the IV administration of 89 mL of Optiray-320, CT angiogram of the thorax was performed from the thoracic inlet to the lung bases utilizing the pulmonary embolus protocol. Images are reviewed in the axial, sagittal, and coronal planes. IV contrast was administered without complication. MIP imaging was performed. CT DOSE: 278.73 mGy.cm FINDINGS: There are calcified mediastinal and hilar lymph nodes, likely postinflammatory There was no evidence of thoracic aortic dilatation. The examination is moderately compromised due to motion artifact. No central emboli are visualized. Given the limited nature the study, correlation with serial leg ultrasonography could be obtained in follow-up There are small bilateral pleural effusions. There are minor basilar atelectatic changes. There is mild septal thickening/edema. There is no lobar consolidation. The heart is enlarged. IMPRESSION: 1. Technically limited study secondary to respiratory motion artifact 2. No central pulmonary emboli identified 3. Cardiomegaly, small bilateral pleural effusions, and mild septal thickening/edema. An element of mild congestive failure/fluid overload is suspected. Electronically signed by: Severiano Villegas M.D. 07/21/2016 12:30 PM Dictated Date/Time: 07/21/2016 12:26 PM
--- NOTE | 2016-07-21 12:58 | Progress Note ---
Progress Note Date of Service Jul 21, 2016. Progress Note ATTENDING NOTE : CT chest reviewed : IMPRESSION: 1. Technically limited study secondary to respiratory motion artifact 2. No central pulmonary emboli identified 3. Cardiomegaly, small bilateral pleural effusions, and mild septal thickening/edema. An element of mild congestive failure/fluid overload is suspected. pt is more sleepy , wakes up easily to voice , mentions of being tired , no confusion had Oxycodone 10 mg at 6 am today -was awake and alert at 8 am during my visit will hold Narcotic pain meds for now ABG ordered for assess Co2 retention Pro BNP ordered cont Neb tx q6 hrs scheduled repeat dose of 20 mg Lasix IV for CHF updated Daughter
--- NOTE | 2016-07-21 13:03 | DIAGNOSTIC IMAGING REPORT ---
BILATERAL LOWER EXTREMITY VENOUS DOPPLER CLINICAL HISTORY: Left hip fracture. COMPARISON STUDY: Right lower extremity venous Doppler Jun 23 2015. TECHNIQUE: Sonography of the deep venous system of the bilateral lower extremities was performed. Compression and augmentation were evaluated. FINDINGS: This exam was difficult due to patient positioning. The common femoral, superficial femoral and popliteal veins were compressible. Augmentation was normal. Flow was shown within the deep calf vessels. IMPRESSION: No evidence of deep venous thrombus within the bilateral lower extremities. Electronically signed by: Roberto Marmolejo M.D. 07/21/2016 1:02 PM Dictated Date/Time: 07/21/2016 12:53 PM
--- NOTE | 2016-07-21 13:12 | PULMONARY CONSULTATION ---
DATE OF CONSULTATION: 07/21/2016 TIME: 12:00 noon. REPORT OF CONSULTATION: The patient was seen in room 363. She is an 85-year-old female who resides at [facility]. On July 16, she suffered a fall. She had severe pain in the area of her left hip. She was brought to the hospital and found to have a fracture of the left femoral neck. The patient had been on Eliquis. Because of that, surgery was detained. She did undergo surgery on July 19. She had a left cemented total hip replacement. She had spinal anesthesia. 1500 mL of fluid was instilled during the surgery. She has done well postoperatively. However, her oxygen saturations have been lower than expected. She had been requiring up to 4 liters of oxygen. Yesterday she was weaned down to 2 liters to keep saturations above 92%. This morning the saturations were 88% on room air. The patient did have some Lasix last night and diuresed about 400 mL. The patient's daughter was present during this examination. The patient was lethargic. She would arouse for a little bit and answer a question, but then kept dozing off during the exam and during the history taking. She denies having any shortness of breath. She states she had a slight cough this morning and did expectorate a small amount of sputum. She denies any chest pains. She denies chills, fevers or sweats. According to her daughter, she has never had any lung trouble in the past such as asthma, emphysema, tuberculosis, pneumonia, pleurisy or pulmonary embolism. She did have a deep vein thrombosis of her leg about a year ago and she has been maintained on Eliquis since then. The Eliquis was held for 2 days to prepare her for the surgery. Review of her record shows that she was hospitalized from 02/01/2014 until 02/06/2014. At that time she had influenza and reactive thrombocytopenia. SOCIAL HISTORY: Tobacco never. ETOH -- occasional. PAST SURGICAL HISTORY: 1. Bunion surgery. 2. Cataract surgery bilaterally. 3. Low back surgery. 4. Tonsillectomy. 5. Has a small scar in her abdominal wall, but the patient could not tell me what that was from. PAST MEDICAL HISTORY: 1. Bronchitis. 2. Chronic low back pain. 3. Hyperlipidemia. 4. Osteoporosis. 5. DVT as noted. ALLERGIES: 1. SULFA. 2. DOXYCYCLINE. 3. SIMVASTATIN. FAMILY HISTORY: There is a listed family history of diabetes and pancreatic cancer. The patient could not stay awake enough to answer these questions for me. Her daughter did not know who in the family may have had those problems. REVIEW OF SYSTEMS: This was very difficult to obtain because the patient kept falling asleep during the exam. It should be noted she had 2 oxycodones in the enforcement officer hours of today. She also had had some occupational therapy today. Her daughter was very concerned about the lethargy. She feels that her mother does not usually look this way. Her appetite apparently has been relatively poor since the surgery. She has not had any specific GI complaints. The patient states that her hip is quite comfortable. The remainder of the review of systems as much as can be determined was negative. Ten systems were attempted to be reviewed. PHYSICAL EXAMINATION: GENERAL: The patient is an 85-year-old female who was quite lethargic. She would arouse to me, shaking her arm and speaking to her. However, she did keep dozing off. She did not appear in any distress. VITAL SIGNS: Temperature is 37.2. HEENT: Pupils were reactive to light. Implants were noted. She has oxygen in place. The membranes of the mouth appeared a little bit dry. NECK: Palpation of the neck reveals no lymph nodes. CHEST: Was of normal expansion and development. Heart rate was 74 per minute. The rhythm was regular. The blood pressure was 138/70. Lung moreno revealed mildly diminished breath sounds. No wheezes, rales or rhonchi were heard. Oxygen saturation was reported as 93% on a mask. It was not specified as to what the concentration of oxygen was. ABDOMEN: Inspection of the abdomen reveals a small scar slightly superior to the umbilicus. Bowel sounds were present. They were mildly diminished. There was no tenderness to palpation or masses. EXTREMITIES: Showed no cyanosis, clubbing or edema. LABORATORY DATA: The patient has had a chest x-ray done at the time of admission. This suggested mild right perihilar atelectasis with nonspecific nodular prominence of the right hilum. A followup x-ray done on July 20 showed borderline cardiomegaly. Again, mild basilar atelectasis was seen with no consolidation lobar. She had an x-ray again today. Again, there are some mild bibasilar linear densities. A right suprahilar nodular density was reported. The radiologist mentioned it may be due to overlapping of the first rib. Yesterday, the white count was 6.71. Hemoglobin 11.4. Platelets 159,000. Urinalysis on admission was negative. Chemistry today showed sodium 129, potassium 3.2, chloride 93, bicarb 29. BUN was 13 with a creatinine of 0.44. Random blood sugar was 129. IMPRESSION: 1. Status post left hip replacement. 2. Hypoxia. 3. Mild bibasilar atelectasis. 4. Increased lethargy. COMMENTS AND RECOMMENDATIONS: The patient has mild hypoxia. She does not complain of shortness of breath. Her x-ray is very mildly abnormal. She does have a history of prior DVT. No specific cause was found. Her anticoagulation was held for a couple of days. In light of unexpected hypoxia, the possibility of pulmonary embolism or fat embolism would need to be considered. She is already scheduled for a CTA and an ultrasound of the extremities. She is back on the Eliquis at present. We will await those results. Would continue with the incentive spirometry. The lethargy in part could be because the patient states she did not sleep well last night. She also had some pain medicines earlier today. The oxycodone was given at 6:15 a.m. this morning. She is on some p.r.n. respiratory treatments, but she does not appear to have been given any because she has not been complaining. Review of the electrolytes from today does not suggest a high CO2 level. One could consider doing an arterial blood gas in light of the lethargy. I do not think it needs to be done for now unless the lethargy worsens in light of the electrolyte results and the fact she is on anticoagulation. Thank you for asking me to assist in her care.
[2016-07-21 13:28] LABS: ARTERIAL BLD GAS O2 SATURATION 93.2 % (90-95); ARTERIAL BLOOD GAS BASE EXCESS 2.5 mEq/L (-9-1.8); ARTERIAL BLOOD GAS HCO3 27 mmol/L (19-24); ARTERIAL BLOOD GAS PO2 67 mm/Hg (80-95); ARTERIAL BLOOD GAS pH 7.45 (7.35-7.45)
[2016-07-21 13:29] LABS: ALLEN TEST POS (POS); O2 ADMINISTRATION 3 L
[2016-07-21] MEDS ORDERED: FUROSEMIDE INJ 20 MG in SYRINGE 0 ML IV ONE (13:30)
[2016-07-21] MEDS ORDERED: POTASSIUM CHLORIDE 10 MEQ TABCR PO ONE (13:30)
[2016-07-21] MEDS: ALBUT/IPRATROP 3MG/0.5MG NEB 3 ML VIAL INH SCH ×2 (15:05→19:16)
[2016-07-21] MEDS: DOCUSATE SODIUM/SENNA 50/8.6MG TAB PO SCH (20:41)
[2016-07-21] MEDS: ATORVASTATIN 20 MG TAB PO SCH (20:41)
[2016-07-22] VITALS (11 sets, daily range): BP systolic 124–151; BP diastolic 69–74; PULSE 68–88; TEMP 36.9–37.5; O2SAT 91–95
[2016-07-22] MEDS: ALBUT/IPRATROP 3MG/0.5MG NEB 3 ML VIAL INH SCH ×4 (01:48→20:12)
[2016-07-22 08:36] LABS: BUN/CREATININE RATIO 26.3 (10-20); CREATININE 0.51 mg/dl (0.60-1.20); POTASSIUM 3.2 mmol/L (3.5-5.1)
[2016-07-22 08:47] LABS: CALCIUM 8.8 mg/dl (8.5-10.1)
[2016-07-22] MEDS: APIXABAN 2.5 MG TAB PO SCH ×2 (09:34→19:13)
[2016-07-22] MEDS: POTASSIUM CHLORIDE 20 MEQ TABCR PO SCH (09:36)
[2016-07-22] MEDS: CHOLECALCIFEROL 1000 INTER.UNIT TAB PO SCH (09:37)
[2016-07-22] MEDS: MAGNESIUM OXIDE 400 MG TAB PO SCH (09:38)
[2016-07-22] MEDS: MULTIVITAMIN TAB PO SCH (09:38)
[2016-07-22] MEDS: BOOST VANILLA PO SCH ×4 (09:41→19:13)
--- NOTE | 2016-07-22 10:29 | PULMONARY PROGRESS NOTE ---
DATE: 07/22/2016 TIME: 09:50 a.m. SUBJECTIVE: The patient is much more alert today. She denies any shortness of breath. She admits to having a slight cough. She feels that she cannot expectorate. She is not having any chest pain, chills, fevers or sweats. The patient is doing incentive spirometry and she can get above 1500 mL, which is excellent. OBJECTIVE: GENERAL: The patient appears comfortable. She was cooperative, alert and oriented. VITAL SIGNS: Temperature is 36.9. EARS, NOSE, AND THROAT: Unchanged from yesterday. NECK: Veins were not distended, although the patient was sitting at about 75 degrees elevation. HEART: Heart rate was 68 per minute. The rhythm was regular. Blood pressure 132/74. LUNGS: Lung moreno revealed a few rales in the left lower chest. Right lung was clear. Respiratory rate is 20 breaths per minute. ABDOMEN: Soft and nontender. Good bowel sounds were heard. EXTREMITIES: Showed no cyanosis or clubbing. LABORATORY DATA: She did have a blood gas done yesterday on 3 liters of oxygen that showed a pH of 7.45 with a pCO2 of 39 and a pO2 of 67. Electrolytes today show sodium 129, potassium 3.2, chloride 91, and bicarbonate 29. BUN was 13 with a creatinine of 0.5. Blood sugar was 110. Albumin was 2.1 with total protein 5.6. The ProBNP was normal at 297. Venous Doppler of both lower extremities was negative. CT of the chest showed some calcified mediastinal and hilar lymph nodes. There were no significant pulmonary emboli seen. There were very small bilateral effusions. There were some mild basilar atelectatic changes. IMPRESSIONS: 1. Status post left hip replacement. 2. Hypoxia. 3. Mild bibasilar atelectatic changes. 4. Lethargy -- resolved. COMMENTS: The patient seems clinically much better. Her saturations this morning on 2 liters were 96%. We are asking the nursing staff to take off her oxygen for a period of time and see how her saturations do. She is doing excellent with the incentive spirometry. She is getting neb treatments on a regular basis and perhaps that has helped somewhat. She appears clinically stable. I am anticipating that her oxygen status will improve. If she ultimately needs to be discharged on oxygen, it would be suggested that after she is well, she have outpatient pulmonary function testing done to assess her lung function.
[2016-07-22] MEDS ORDERED: POTASSIUM CHLORIDE 20 MEQ TABCR PO STA (13:57)
--- NOTE | 2016-07-22 14:32 | Progress Note ---
Internal Med Progress Note Date of Service: Jul 22, 2016. Provider Documentation: SUBJECTIVE: in room air spo2 > 94 % no complain of SOB has non productive cough doing well with PT plan to discharge her to SNF at [facility] tomorrow OBJECTIVE: Vital Signs-as noted below Exam: General-no sign of distress Eyes-sclera non icteric Lungs-faint crackles at base Heart-regular S1/S2 Abdomen-soft, non tender Extremities-no lower ext edema , healing wound on left hip surgical site ; has small skin tear on left buttock , clean base , Neuro-no focal deficit Lab data as noted below. ASSESSMENT & PLAN: HYPOXIA/RESOLVED -in room air today possible due to combination of deconditioning /vol overload Pulmonology consult with Dr Wolfe -appreciated CTA of chest negative for PE Lower ext Doppler no evidence of DVT pt is already on Eliquis given IV Lasix with adequate diuresis able to be weaned off 02 in room air with adequate oxygenation ACUTE CHF WITH DIASTOLIC FAILURE: ECHO ; grade 1 diastolic dysfunction given Lasix for vol overload currently on stable volume status ordered for fluid restriction 1500 ml /day D/c Olivera catheter HYPONATREMIA /HYPOKALEMIA : possible due to diuresis ? ordered for K replacement fluid restriction 1500ml/day ordered follow PRP TRAUMATIC OSTEOPOROTIC LEFT FEMORAL NECK FRACTURE In setting of elderly female S/p mechanical fall Good functional status at baseline ECHO: EF:55-60%. No regional wall motion abnormalities Appreciate Ortho input S/P left hip arthroplasty POD # 3 PT/OT ordered Eliquis resumed by Ortho Ortho following can be transferred to Rehab tomorrow SMALL SKIN TEAR ON LEFT BUTTOCK : due to fall cont local wound care wound care nurse consulted H/O DVT RLE DVT unprovoked in 2014 Hold Eliquis for now Per Dr. Travis's recommendation, when Eliquis is resumed the correct dosing would be 2.5 mg BID for DVT >6 months ago Eliquis resumed Lower ext Doppler-negative for DVT /CTA of chest negative PE DVT Px: Eliquis CODE STATUS Full code PROCEDURES: ECHO: * Ejection Fraction = 55-60%. * There is mild concentric left ventricular hypertrophy. * No regional wall motion abnormalities noted. * Grade I diastolic dysfunction, (abnormal relaxation pattern). * Aortic valve sclerosis mild, without significant aortic valvular stenosis. * Mild aortic regurgitation. DISPOSITION will need rehab SNF [facility] for rehab tomorrow Daughter updated at bedside Vital Signs: Date Time Temp Pulse Resp B/P (MAP) Pulse Ox O2 Delivery O2 Flow Rate FiO2 07/22/16 12:32 37.1 68 16 124/70 (88) 94 Room Air 07/22/16 11:09 95 Room Air 07/22/16 10:20 94 Room Air 07/22/16 08:22 36.9 68 20 132/74 (93) 94 Nasal Cannula 2.0 07/22/16 08:00 Nasal Cannula 3.0 07/22/16 07:01 88 18 92 Nasal Cannula 3.0 07/22/16 01:48 84 18 92 Nasal Cannula 3.0 07/21/16 23:15 Nasal Cannula 4.0 Humidified Air 07/21/16 22:46 36.8 81 16 121/68 (85) 92 Nasal Cannula 2.0 07/21/16 19:16 85 18 94 Nasal Cannula 3.0 07/21/16 16:01 37.1 81 18 148/69 (95) 92 Humidified Oxygen 3.0 07/21/16 15:30 Nasal Cannula 3.0 07/21/16 15:23 36.6 89 18 95/60 (72) 92 Humidified Oxygen 3.0 07/21/16 15:05 95 18 92 Nasal Cannula 3.0 Lab Results: Results Past 24 Hours Test 07/22/16 07:47 Range/Units Sodium Level 129 136-145 mmol/L Potassium Level 3.2 3.5-5.1 mmol/L Chloride Level 91 98-107 mmol/L Carbon Dioxide Level 29 21-32 mmol/L Anion Gap 9.0 3-11 mmol/L Blood Urea Nitrogen 13 7-18 mg/dl Creatinine 0.51 0.60-1.20 mg/dl Est Creatinine Clear Calc Drug Dose 80.6 ml/min Estimated GFR () 100.9 Estimated GFR (Non- 87.1 BUN/Creatinine Ratio 26.3 10-20 Random Glucose 110 70-99 mg/dl Calcium Level 8.8 8.5-10.1 mg/dl Total Bilirubin 1.2 0.2-1 mg/dl Direct Bilirubin 0.2 0-0.2 mg/dl Aspartate Amino Transf (AST/SGOT) 21 15-37 U/L Alanine Aminotransferase (ALT/SGPT) 23 12-78 U/L Alkaline Phosphatase 54 45-117 U/L Total Protein 5.6 6.4-8.2 gm/dl Albumin 2.1 3.4-5.0 gm/dl
[2016-07-22] MEDS: ATORVASTATIN 20 MG TAB PO SCH (19:12)
[2016-07-22] MEDS: OXYCODONE HCL IR 5 MG TAB (IMMEDIATE RELEASE) PO PRN (19:12)
[2016-07-22] MEDS: DOCUSATE SODIUM/SENNA 50/8.6MG TAB PO SCH (19:13)
[2016-07-23] MEDS: OXYCODONE HCL IR 5 MG TAB (IMMEDIATE RELEASE) PO PRN (01:22)
[2016-07-23] MEDS: ALBUT/IPRATROP 3MG/0.5MG NEB 3 ML VIAL INH SCH ×2 (02:06→08:35)
[2016-07-23 07:17] VITALS: BP 129/74; PULSE 79; TEMP 37; O2SAT 93
[2016-07-23 08:10] VITALS: PULSE 80; O2SAT 93
[2016-07-23 09:02] LABS: CALCIUM 9.4 mg/dl (8.5-10.1); CREATININE 0.49 mg/dl (0.60-1.20); POTASSIUM 3.3 mmol/L (3.5-5.1)
[2016-07-23] MEDS: MULTIVITAMIN TAB PO SCH (09:12)
[2016-07-23] MEDS: APIXABAN 2.5 MG TAB PO SCH (09:12)
[2016-07-23] MEDS: CHOLECALCIFEROL 1000 INTER.UNIT TAB PO SCH (09:12)
[2016-07-23] MEDS: MAGNESIUM OXIDE 400 MG TAB PO SCH (09:12)
[2016-07-23] MEDS: POTASSIUM CHLORIDE 20 MEQ TABCR PO SCH (09:13)
[2016-07-23] MEDS: BOOST VANILLA PO SCH ×2 (09:17)
[2016-07-23 12:23] VITALS: BP 129/74; PULSE 80; TEMP 37; O2SAT 93
--- NOTE | 2016-07-23 13:04 | Discharge Instructions ---
Discharge Instructions Date of Service Jul 23, 2016. Admission Reason for Admission: Fracture Of Left Hip Discharge Discharge Diagnosis / Problem: FRACTURE OF LEFT HIP ; S/P LEFT HIP REPLACEMENT Discharge Goals Goal(s): Decrease discomfort, Increase independence, Diagnostic testing, Therapeutic intervention Activity Recommendations Activity Level: Assistance Required Therapies: Physical Therapy, Occupational Therapy Weightbearing Status: Left weightbearing (as tolerated) Exercise/Sports Limitations: as tolerated (SEE BELOW NOTE ) ACTIVITY RECOMMENDATIONS: SELF CARE INSTRUCTIONS AFTER TOTAL HIP REPLACEMENT : Direct Anterior Approach Until the incision and soft tissues around your hip have healed, there is a possibility that the hip prosthesis could dislocate. A. Hip flexion ( Up & Down out of chair or steps ) may be difficult. This is normal. B. Numbness in front of the thigh is also normal for a few weeks. C. Use hand rails when walking on stairs. D. Wear low heeled shoes with non-slip soles. E. Be sure that your floors are free of things that could trip you - throw rugs , electrical cords, small objects. Avoid wet and waxed floors, especially with crutches and canes. F. Try to walk several times a day with rest periods between. G. Continue with all the exercises taught to you in the hospital. Again, make walking a part of your daily routine. SPECIAL CARE INSTRUCTIONS: VERY IMPORTANT TO READ AND REVIEW A. You may still be at risk for phlebitis and blood clots. 1. Wear surgical stockings (ARABELLA hose) for 2 weeks after surgery to improve circulation and reduce swelling. 2. Take Apixaban twice daily or as directed by your doctor. This is your blood thinner. 3. High risk patients may be prescribed a stronger blood thinner if necessary. 4. If you are on Coumadin normally, your family doctor/database programmer analyst should monitor your blood work. Expect a phone call the day of or the day after bloodwork is drawn to adjust your dosage. B. You must take antibiotics before having dental work, bladder, bowel and other surgery. Your doctor will provide you with a permanent card to carry describing precautions. C. Call [facility] if you have a fever, redness or swelling around the incision, cloudy drainage from incision, or sudden increase in pain in your hip, not relieved by your regular pain medication. D. Please call the office at if you have any concerns or questions about your operation or recovery. * YOU MAY SHOWER, NO TUB BATHS UNTIL CLEARED BY YOUR DOCTOR. - Keep an extra close eye on the top portion of your incision. Be sure to keep clean & dry. * WEAR ARABELLA HOSE 20 HOURS PER DAY FOR 2 WEEKS. * YOU MAY PROGRESS FROM A WALKER, TO A CANE, TO INDEPENDENT AT YOUR OWN PACE. * MOST PATIENTS WILL HAVE HOME NURSING FOR THERAPY. IF YOU DECIDE TO DO OUTPATIENT PHYSICAL THERAPY, PLEASE SCHEDULE THIS 3 TIMES PER WEEK. * DERMABOND Prineo- This is a mesh tape dressing that is covered with glue. It should remain in place until the incision is properly healed, usually 10-14 days. This dressing is designed to naturally slough off. You may trim the excess mesh tape as it peels off. Incision may be briefly wet in a shower. Dry immediately by blotting with a clean, dry towel. Do not bath or swim until instructed by your doctor. Do not scratch, rub, or pick at the dressing. Do not apply any topical ointments or lotions until dressing is completely removed and/or instructed by your doctor. There may be a small piece of suture material at one end of your incision. Do not pull or trim this. If it is bothersome or catching on clothing, you may cover it with a band-aid. FOLLOW UP VISIT: If appointment is not already scheduled: Please call [facility] to make a follow-up appointment for 2 weeks after your surgery at . . Additional Information Patient informed of condition: Yes Advance Directives: No DNR: No Level of Care: Skilled Communicable Disease: No Prognosis: Stable Olivera Catheter: No Instructions / Follow-Up Instructions / Follow-Up CONTINUE ELIQUIS 2.5 MG PO BID FOR AT LEAST 6 MONTHS ( HX OF PRIOR DVT ) LAB WORK : BASIC METABOLIC PANEL NEEDS TO BE CHECKED ON Tuesday07/26/16 FOR HYPONATREMIA /HYPOKALEMIA Current Hospital Diet Patient's current hospital diet: Regular Diet Discharge Diet Recommended Diet: Regular Diet Procedures Procedures Performed: Left Total Hip Arthroplasty--Cemented, Direct Anterior Approach Pending Studies Studies pending at discharge: no Physician Orders On Transfer Dressing Changes: LEFT BUTTOCK SKIN TEAR. -SMALL SKIN TEAR TO LEFT BUTTOCKS WITH SMALL PURPLE AREA APPLY OPTIFOAM -CHANGE EVERY 3 DAYS NEEDS TO BE OFF LOADING PRESSURE MUCH POSSIBLE FOR PROPER HEALING Medical Emergencies . Who to Call and When: Medical Emergencies: If at any time you feel your situation is an emergency, please call 911 immediately. . Non-Emergent Contact Non-Emergency issues call your: Primary Care Provider . . "Provider Documentation" section prepared by Nika Heaton. . Cnc Service Technician Recommendations Cnc Service Technician Recommendations: ACTIVITY RECOMMENDATIONS: SELF CARE INSTRUCTIONS AFTER TOTAL HIP REPLACEMENT : Direct Anterior Approach Until the incision and soft tissues around your hip have healed, there is a possibility that the hip prosthesis could dislocate. A. Hip flexion ( Up & Down out of chair or steps ) may be difficult. This is normal. B. Numbness in front of the thigh is also normal for a few weeks. C. Use hand rails when walking on stairs. D. Wear low heeled shoes with non-slip soles. E. Be sure that your floors are free of things that could trip you - throw rugs , electrical cords, small objects. Avoid wet and waxed floors, especially with crutches and canes. F. Try to walk several times a day with rest periods between. G. Continue with all the exercises taught to you in the hospital. Again, make walking a part of your daily routine. SPECIAL CARE INSTRUCTIONS: VERY IMPORTANT TO READ AND REVIEW A. You may still be at risk for phlebitis and blood clots. 1. Wear surgical stockings (ARABELLA hose) for 2 weeks after surgery to improve circulation and reduce swelling. 2. Take Apixaban twice daily or as directed by your doctor. This is your blood thinner. 3. High risk patients may be prescribed a stronger blood thinner if necessary. 4. If you are on Coumadin normally, your family doctor/database programmer analyst should monitor your blood work. Expect a phone call the day of or the day after bloodwork is drawn to adjust your dosage. B. You must take antibiotics before having dental work, bladder, bowel and other surgery. Your doctor will provide you with a permanent card to carry describing precautions. C. Call [facility] if you have a fever, redness or swelling around the incision, cloudy drainage from incision, or sudden increase in pain in your hip, not relieved by your regular pain medication. D. Please call the office at if you have any concerns or questions about your operation or recovery. * YOU MAY SHOWER, NO TUB BATHS UNTIL CLEARED BY YOUR DOCTOR. - Keep an extra close eye on the top portion of your incision. Be sure to keep clean & dry. * WEAR ARABELLA HOSE 20 HOURS PER DAY FOR 2 WEEKS. * YOU MAY PROGRESS FROM A WALKER, TO A CANE, TO INDEPENDENT AT YOUR OWN PACE. * MOST PATIENTS WILL HAVE HOME NURSING FOR THERAPY. IF YOU DECIDE TO DO OUTPATIENT PHYSICAL THERAPY, PLEASE SCHEDULE THIS 3 TIMES PER WEEK. * DERMABOND Prineo- This is a mesh tape dressing that is covered with glue. It should remain in place until the incision is properly healed, usually 10-14 days. This dressing is designed to naturally slough off. You may trim the excess mesh tape as it peels off. Incision may be briefly wet in a shower. Dry immediately by blotting with a clean, dry towel. Do not bath or swim until instructed by your doctor. Do not scratch, rub, or pick at the dressing. Do not apply any topical ointments or lotions until dressing is completely removed and/or instructed by your doctor. There may be a small piece of suture material at one end of your incision. Do not pull or trim this. If it is bothersome or catching on clothing, you may cover it with a band-aid. FOLLOW UP VISIT: If appointment is not already scheduled: Please call [facility] to make a follow-up appointment for 2 weeks after your surgery at . Core Measure Problem Core Measures: None
[2016-07-23] MEDS ORDERED: RXC5 PO (13:06)
[2016-07-23] MEDS ORDERED: DIAZ2TAB PO (13:06)
[2016-07-23] MEDS ORDERED: MRLP17X PO (13:06)
[2016-07-23] MEDS ORDERED: MOMLX PO (13:06)
[2016-07-23] MEDS ORDERED: Boost PO (13:06)
[2016-07-23] MEDS ORDERED: POTASSIUM CHLORIDE 20 MEQ TABCR PO STA (13:11)
[2016-07-23] MEDS ORDERED: AZIT250T PO (13:11)
--- NOTE | 2016-07-23 13:17 | Progress Note ---
Internal Med Progress Note Date of Service: Jul 23, 2016. Provider Documentation: SUBJECTIVE: no hypoxia , in room air sitting up on chair , feels much better was able to ambulate in nett[address] way earlier , no discomfort, no SOB noted having cough with yellow sputum no fever or chills OBJECTIVE: Vital Signs-as noted below Exam: General-no sign of distress Eyes-sclera non icteric Lungs-faint crackles at base Heart-regular S1/S2 Abdomen-soft, non tender Extremities-no lower ext edema , healing wound on left hip surgical site ; has small skin tear on left buttock , clean base , Neuro-no focal deficit Lab data as noted below. ASSESSMENT & PLAN: HYPOXIA/RESOLVED -in room air today possible due to combination of deconditioning /vol overload Pulmonology consult with Dr Wolfe -appreciated CTA of chest negative for PE Lower ext Doppler no evidence of DVT pt is already on Eliquis given IV Lasix with adequate diuresis in room air with adequate oxygenation stable to be transferred to [facility] for rehab COUGH /YELLOW SPUTUM : possible bronchitis CT chest /chest Xray shows no evidence of pneumonia no fever or chills empiric abx with PO Zithromax for 5 days ACUTE CHF WITH DIASTOLIC FAILURE: resolved ECHO ; grade 1 diastolic dysfunction given Lasix for vol overload -with adequate diuresis currently on stable volume status ordered for fluid restriction 1500 ml /day HYPONATREMIA /HYPOKALEMIA : Na level improved to 132 possible due to diuresis ? ordered for K replacement fluid restriction 1500ml/day ordered repeat PRP in 2-3 days at Rehab TRAUMATIC OSTEOPOROTIC LEFT FEMORAL NECK FRACTURE In setting of elderly female S/p mechanical fall Good functional status at baseline ECHO: EF:55-60%. No regional wall motion abnormalities Appreciate Ortho input S/P left hip arthroplasty POD # 4 PT/OT ordered Eliquis resumed by Ortho will need at least 6 months of therapy cont Todd hose for 2 weeks Ortho following can be transferred to Rehab today Follow up with Orthopedics in 2 weeks SMALL SKIN TEAR ON LEFT BUTTOCK : due to fall cont local wound care wound care nurse consulted H/O DVT RLE DVT unprovoked in 2014 Hold Eliquis for now Per Dr. Travis's recommendation, Eliquis is resumed ; should be 2.5 mg BID for DVT >6 months Eliquis resumed Lower ext Doppler-negative for DVT /CTA of chest negative PE DVT Px: Eliquis CODE STATUS Full code PROCEDURES: ECHO: * Ejection Fraction = 55-60%. * There is mild concentric left ventricular hypertrophy. * No regional wall motion abnormalities noted. * Grade I diastolic dysfunction, (abnormal relaxation pattern). * Aortic valve sclerosis mild, without significant aortic valvular stenosis. * Mild aortic regurgitation. DISPOSITION will need rehab [facility] Evi owusu for rehab today Daughter updated at bedside Vital Signs: Date Time Temp Pulse Resp B/P (MAP) Pulse Ox O2 Delivery O2 Flow Rate FiO2 07/23/16 12:23 37.0 80 16 93 Room Air 07/23/16 08:40 Room Air 07/23/16 08:10 80 16 93 Room Air 07/23/16 07:17 37.0 79 18 129/74 (92) 93 Room Air 07/23/16 00:00 Room Air 07/22/16 23:33 37.0 75 16 135/69 (91) 91 Room Air 07/22/16 20:12 80 16 95 Room Air 07/22/16 15:50 37.0 92 Room Air 07/22/16 15:45 37.5 88 16 151/71 (97) 93 Room Air 07/22/16 15:30 Room Air 07/22/16 14:29 85 16 95 Room Air Lab Results: Results Past 24 Hours Test 07/23/16 08:14 Range/Units Sodium Level 132 136-145 mmol/L Potassium Level 3.3 3.5-5.1 mmol/L Chloride Level 93 98-107 mmol/L Carbon Dioxide Level 28 21-32 mmol/L Anion Gap 11.0 3-11 mmol/L Blood Urea Nitrogen 10 7-18 mg/dl Creatinine 0.49 0.60-1.20 mg/dl Est Creatinine Clear Calc Drug Dose 83.9 ml/min Estimated GFR () 102.2 Estimated GFR (Non- 88.2 BUN/Creatinine Ratio 20.0 10-20 Random Glucose 108 70-99 mg/dl Calcium Level 9.4 8.5-10.1 mg/dl
[2016-07-23] MEDS ORDERED: MCRK20 PO (13:20)
--- NOTE | 2016-07-23 13:25 | Discharge Summary ---
Discharge Summary Date of Service Jul 23, 2016. Discharge Summary Admission Date: Jul 16, 2016 at 17:49 Discharge Date: Jul 23, 2016 Discharge Disposition: intermediate facility ([facility] ) Principal Diagnosis: FRACTURE OF LEFT HIP ; S/P LEFT HIP REPLACEMENT Procedures: Procedures Performed: Left Total Hip Arthroplasty--Cemented, Direct Anterior Approach LEFT PELVIS/UNILATERAL HIP 2-3VIEWS CLINICAL HISTORY: fall trauma. Pain. COMPARISON: None. DISCUSSION: Fracture left femoral neck. No evidence of dislocation. Slice appear migration left femoral shaft. No evidence for acetabular protrusion. There is no evidence for soft tissue swelling. IMPRESSION: Fracture left femoral neck ECHO : Ejection Fraction = 55-60%. There is mild concentric left ventricular hypertrophy. No regional wall motion abnormalities noted. Grade I diastolic dysfunction, (abnormal relaxation pattern). Aortic valve sclerosis mild, without significant aortic valvular stenosis. Mild aortic regurgitation. CT CHEST WITH CONTRAST : IMPRESSION: 1. Technically limited study secondary to respiratory motion artifact 2. No central pulmonary emboli identified 3. Cardiomegaly, small bilateral pleural effusions, and mild septal thickening/edema. An element of mild congestive failure/fluid overload is suspected. Consultations: ORTHOPEDICS PULMONOLOGY Medication Reconciliation New Medications: Azithromycin (Zithromax) 250 Mg Tab 250 MG PO DAILY for 4 Days, #4 TAB Magnesium Hydroxide (Milk of Magnesia) 30 Ml Susp 30 ML PO DAILY PRN for Constipation for 30 Days Oxycodone HCl (Oxycodone HCl) 5 Mg Tab 5 MG PO Q6 PRN for PAIN , #10 TAB Polyethylene (Miralax) 17 Gm Pow 17 GM PO DAILY PRN for Constipation for 30 Days Potassium Chloride (Klor-Con M20) 20 Meq Tabcr 20 MEQ PO QAM for 10 Days [Boost] () 1 CAN LIQD 1 CAN PO BID@1000,2000 for 30 Days Continued Medications: Apixaban (Eliquis) 5 Mg Tab 5 MG PO BID, TAB Atorvastatin (Lipitor) 20 Mg Tab 20 MG PO HS, TAB Cholecalciferol (Vitamin D3) 2,000 Unit Tab 4000 UNITS PO DAILY Diazepam (Valium) 2 Mg Tab 2 MG PO DAILY PRN for Muscle Spasms, #14 TAB (This prescription has been renewed ) Fluticasone Propionate (Nasal) (Flonase Allergy Relief) 50 Mcg/Act Spr 2 SPRAYS AUTUMN DAILY PRN for Nasal Congestion Magnesium Oxide (Mg Supplement (Magnesium) 500 Mg Cap 500 MG PO DAILY Multiple Vitamin (Multi Vitamin Daily) 1 Tab Tab 1 TAB PO DAILY Pseudoephedrine (Sudafed) 30 Mg Tab 30 MG PO UD PRN for Nasal Congestion, TAB Admission Information HPI (per Admitting provider): This is an 85 year old female with PMH of dyslipidemia, history of DVT RLE in 2015 on Eliquis, osteoporosis, and other problems listed below who presents to the ED with left hip pain s/p mechanical fall. Patient states earlier today while walking too quickly she tripped on her sandal in the hallway of [facility] and fell onto her left hip. There was no dizziness or LOC. Patient was unable to stand due to severe left hip pain with movement. No other injury. 911 was called and patient was brought to ER by ambulance. Pain is localized in left groin area, rated 2/10 at rest and 9/10 with movement. She received IV morphine in ER which helped. Patient has been feeling at baseline recently. She lives in an independent apartment in [facility]. Patient climbs 2 flights of stairs daily without issues. Has occasional dry cough, sneezing, itchy watery eyes attributed to seasonal allergies. Denies fevers, chest pain, SOB, REYES, N/V/D, dysuria, frequency, edema, abnormal bleeding or bruising, acute focal weakness/ numbness. Last dose of Eliquis was at 9 am this morning. Patient denies any history of CAD. Last stress echo negative in 2004 showed normal LV EF 55-60%, grade 1 aortic insufficiency. Physical Exam (per Admitting): General Appearance: WD/WN, no apparent distress, + pertinent finding ( pleasant alert elderly female, daughter at bedside) Head: normocephalic, atraumatic Eyes: normal inspection, PERRL, EOMI ENT: hearing grossly normal, pharynx normal Neck: supple, trachea midline Respiratory/Chest: lungs clear, normal breath sounds, no respiratory distress, no accessory muscle use Cardiovascular: regular rate, rhythm, no murmur Abdomen/GI: normal bowel sounds, non tender, soft Extremities/Musculoskelatal: no calf tenderness, no pedal edema, + pertinent finding (severe pain with left hip ROM) Neurologic/Psych: alert, normal mood/affect, oriented x 3, + pertinent finding (sensation to light touch grossly intact bilateral LE. able to flex/ extend bilateral ankles against gravity) Skin: normal color, warm/dry Hospital Course HYPOXIA/RESOLVED -in room air today possible due to combination of deconditioning /vol overload Pulmonology consult with Dr Wolfe -appreciated CTA of chest negative for PE Lower ext Doppler no evidence of DVT pt is already on Eliquis given IV Lasix with adequate diuresis in room air with adequate oxygenation stable to be transferred to [facility] for rehab COUGH /YELLOW SPUTUM : possible bronchitis CT chest /chest Xray shows no evidence of pneumonia no fever or chills empiric abx with PO Zithromax for 5 days ACUTE CHF WITH DIASTOLIC FAILURE: resolved ECHO ; grade 1 diastolic dysfunction given Lasix for vol overload -with adequate diuresis currently on stable volume status ordered for fluid restriction 1500 ml /day HYPONATREMIA /HYPOKALEMIA : Na level improved to 132 possible due to diuresis ? ordered for K replacement fluid restriction 1500ml/day ordered repeat PRP in 2-3 days at Rehab TRAUMATIC OSTEOPOROTIC LEFT FEMORAL NECK FRACTURE In setting of elderly female S/p mechanical fall Good functional status at baseline ECHO: EF:55-60%. No regional wall motion abnormalities Appreciate Ortho input S/P left hip arthroplasty POD # 4 PT/OT ordered Eliquis resumed by Ortho will need at least 6 months of therapy cont Arabella hose for 2 weeks Ortho following can be transferred to Rehab today Follow up with Orthopedics in 2 weeks SMALL SKIN TEAR ON LEFT BUTTOCK : due to fall cont local wound care wound care nurse consulted H/O DVT RLE DVT unprovoked in 2014 Hold Eliquis for now Per Dr. Travis's recommendation, Eliquis is resumed ; should be 2.5 mg BID for DVT >6 months Eliquis resumed Lower ext Doppler-negative for DVT /CTA of chest negative PE DVT Px: Eliquis CODE STATUS Full code PROCEDURES: ECHO: * Ejection Fraction = 55-60%. * There is mild concentric left ventricular hypertrophy. * No regional wall motion abnormalities noted. * Grade I diastolic dysfunction, (abnormal relaxation pattern). * Aortic valve sclerosis mild, without significant aortic valvular stenosis. * Mild aortic regurgitation. DISPOSITION will need rehab [facility] for rehab today Daughter updated at bedside Total time spent on discharge = 40 MINS This includes examination of the patient, discharge planning, medication reconciliation, and communication with other providers. Discharge Instructions Discharge Instructions Date of Service Jul 23, 2016. Admission Reason for Admission: Fracture Of Left Hip Discharge Discharge Diagnosis / Problem: FRACTURE OF LEFT HIP ; S/P LEFT HIP REPLACEMENT Discharge Goals Goal(s): Decrease discomfort, Increase independence, Diagnostic testing, Therapeutic intervention Activity Recommendations Activity Level: Assistance Required Therapies: Physical Therapy, Occupational Therapy Weightbearing Status: Left weightbearing (as tolerated) Exercise/Sports Limitations: as tolerated (SEE BELOW NOTE ) ACTIVITY RECOMMENDATIONS: SELF CARE INSTRUCTIONS AFTER TOTAL HIP REPLACEMENT : Direct Anterior Approach Until the incision and soft tissues around your hip have healed, there is a possibility that the hip prosthesis could dislocate. A. Hip flexion ( Up & Down out of chair or steps ) may be difficult. This is normal. B. Numbness in front of the thigh is also normal for a few weeks. C. Use hand rails when walking on stairs. D. Wear low heeled shoes with non-slip soles. E. Be sure that your floors are free of things that could trip you - throw rugs , electrical cords, small objects. Avoid wet and waxed floors, especially with crutches and canes. F. Try to walk several times a day with rest periods between. G. Continue with all the exercises taught to you in the hospital. Again, make walking a part of your daily routine. SPECIAL CARE INSTRUCTIONS: VERY IMPORTANT TO READ AND REVIEW A. You may still be at risk for phlebitis and blood clots. 1. Wear surgical stockings (ARABELLA hose) for 2 weeks after surgery to improve circulation and reduce swelling. 2. Take Apixaban twice daily or as directed by your doctor. This is your blood thinner. 3. High risk patients may be prescribed a stronger blood thinner if necessary. 4. If you are on Coumadin normally, your family doctor/dye reel operator helper should monitor your blood work. Expect a phone call the day of or the day after bloodwork is drawn to adjust your dosage. B. You must take antibiotics before having dental work, bladder, bowel and other surgery. Your doctor will provide you with a permanent card to carry describing precautions. C. Call [facility] if you have a fever, redness or swelling around the incision, cloudy drainage from incision, or sudden increase in pain in your hip, not relieved by your regular pain medication. D. Please call the office at if you have any concerns or questions about your operation or recovery. * YOU MAY SHOWER, NO TUB BATHS UNTIL CLEARED BY YOUR DOCTOR. - Keep an extra close eye on the top portion of your incision. Be sure to keep clean & dry. * WEAR ARABELLA HOSE 20 HOURS PER DAY FOR 2 WEEKS. * YOU MAY PROGRESS FROM A WALKER, TO A CANE, TO INDEPENDENT AT YOUR OWN PACE. * MOST PATIENTS WILL HAVE HOME NURSING FOR THERAPY. IF YOU DECIDE TO DO OUTPATIENT PHYSICAL THERAPY, PLEASE SCHEDULE THIS 3 TIMES PER WEEK. * DERMABOND Prineo- This is a mesh tape dressing that is covered with glue. It should remain in place until the incision is properly healed, usually 10-14 days. This dressing is designed to naturally slough off. You may trim the excess mesh tape as it peels off. Incision may be briefly wet in a shower. Dry immediately by blotting with a clean, dry towel. Do not bath or swim until instructed by your doctor. Do not scratch, rub, or pick at the dressing. Do not apply any topical ointments or lotions until dressing is completely removed and/or instructed by your doctor. There may be a small piece of suture material at one end of your incision. Do not pull or trim this. If it is bothersome or catching on clothing, you may cover it with a band-aid. FOLLOW UP VISIT: If appointment is not already scheduled: Please call [facility] to make a follow-up appointment for 2 weeks after your surgery at . . Additional Information Patient informed of condition: Yes Advance Directives: No DNR: No Level of Care: Skilled Communicable Disease: No Prognosis: Stable Olivera Catheter: No Instructions / Follow-Up Instructions / Follow-Up CONTINUE ELIQUIS 2.5 MG PO BID FOR AT LEAST 6 MONTHS ( HX OF PRIOR DVT ) LAB WORK : BASIC METABOLIC PANEL NEEDS TO BE CHECKED ON Tuesday07/26/16 FOR HYPONATREMIA /HYPOKALEMIA Current Hospital Diet Patient's current hospital diet: Regular Diet Discharge Diet Recommended Diet: Regular Diet Procedures Procedures Performed: Left Total Hip Arthroplasty--Cemented, Direct Anterior Approach Pending Studies Studies pending at discharge: no Physician Orders On Transfer Dressing Changes: LEFT BUTTOCK SKIN TEAR. -SMALL SKIN TEAR TO LEFT BUTTOCKS WITH SMALL PURPLE AREA APPLY OPTIFOAM -CHANGE EVERY 3 DAYS NEEDS TO BE OFF LOADING PRESSURE MUCH POSSIBLE FOR PROPER HEALING Medical Emergencies . Who to Call and When: Medical Emergencies: If at any time you feel your situation is an emergency, please call 911 immediately. . Non-Emergent Contact Non-Emergency issues call your: Primary Care Provider . . "Provider Documentation" section prepared by Nika Heaton. . Stopper Setter Recommendations Stopper Setter Recommendations: ACTIVITY RECOMMENDATIONS: SELF CARE INSTRUCTIONS AFTER TOTAL HIP REPLACEMENT : Direct Anterior Approach Until the incision and soft tissues around your hip have healed, there is a possibility that the hip prosthesis could dislocate. A. Hip flexion ( Up & Down out of chair or steps ) may be difficult. This is normal. B. Numbness in front of the thigh is also normal for a few weeks. C. Use hand rails when walking on stairs. D. Wear low heeled shoes with non-slip soles. E. Be sure that your floors are free of things that could trip you - throw rugs , electrical cords, small objects. Avoid wet and waxed floors, especially with crutches and canes. F. Try to walk several times a day with rest periods between. G. Continue with all the exercises taught to you in the hospital. Again, make walking a part of your daily routine. SPECIAL CARE INSTRUCTIONS: VERY IMPORTANT TO READ AND REVIEW A. You may still be at risk for phlebitis and blood clots. 1. Wear surgical stockings (ARABELLA hose) for 2 weeks after surgery to improve circulation and reduce swelling. 2. Take Apixaban twice daily or as directed by your doctor. This is your blood thinner. 3. High risk patients may be prescribed a stronger blood thinner if necessary. 4. If you are on Coumadin normally, your family doctor/dye reel operator helper should monitor your blood work. Expect a phone call the day of or the day after bloodwork is drawn to adjust your dosage. B. You must take antibiotics before having dental work, bladder, bowel and other surgery. Your doctor will provide you with a permanent card to carry describing precautions. C. Call [facility] if you have a fever, redness or swelling around the incision, cloudy drainage from incision, or sudden increase in pain in your hip, not relieved by your regular pain medication. D. Please call the office at if you have any concerns or questions about your operation or recovery. * YOU MAY SHOWER, NO TUB BATHS UNTIL CLEARED BY YOUR DOCTOR. - Keep an extra close eye on the top portion of your incision. Be sure to keep clean & dry. * WEAR ARABELLA HOSE 20 HOURS PER DAY FOR 2 WEEKS. * YOU MAY PROGRESS FROM A WALKER, TO A CANE, TO INDEPENDENT AT YOUR OWN PACE. * MOST PATIENTS WILL HAVE HOME NURSING FOR THERAPY. IF YOU DECIDE TO DO OUTPATIENT PHYSICAL THERAPY, PLEASE SCHEDULE THIS 3 TIMES PER WEEK. * DERMABOND Prineo- This is a mesh tape dressing that is covered with glue. It should remain in place until the incision is properly healed, usually 10-14 days. This dressing is designed to naturally slough off. You may trim the excess mesh tape as it peels off. Incision may be briefly wet in a shower. Dry immediately by blotting with a clean, dry towel. Do not bath or swim until instructed by your doctor. Do not scratch, rub, or pick at the dressing. Do not apply any topical ointments or lotions until dressing is completely removed and/or instructed by your doctor. There may be a small piece of suture material at one end of your incision. Do not pull or trim this. If it is bothersome or catching on clothing, you may cover it with a band-aid. FOLLOW UP VISIT: If appointment is not already scheduled: Please call [facility] to make a follow-up appointment for 2 weeks after your surgery at . Core Measure Problem Core Measures: None Additional Copies To Rod Guerrero III, M.D. Jayce Combs M.D.
[2016-07-23] MEDS ORDERED: AZITHROMYCIN 250 MG TAB PO ONE (13:30)
--- NOTE | 2016-07-27 09:15 | Anesthesiology Progress Note ---
Anesthesia Post Op Note Date & Time Jul 27, 2016 at 09:11 Vital Signs Pain Intensity: 0.0 Notes Mental Status: alert / awake / arousable, participated in evaluation Pt Amnestic to Procedure: Yes Nausea / Vomiting: adequately controlled Pain: adequately controlled Airway Patency, RR, SpO2: stable & adequate BP & HR: stable & adequate Hydration State: stable & adequate Anesthetic Complications: no major complications apparent This is a postop discharge note for surgery on 07/19/18. The patient was doing well at the time of discharge from PACU.
== END 2016-07-23 14:14 | DRG 469 ==
LOC: EDBD 14:25 → C.EDC 14:25 → ENRESERV 17:11 → C.MSW 17:49
PROVIDERS: ADMIT Internal Medicine; ATTEND Hospitalist
PROC: 0SRB0J9 Replacement of Left Hip Joint with Synthetic Substitute, Cemented, Open Approach (ICD-10-PCS; principal; 2016-07-19 13:15)
DX: M80.052A Age-related osteoporosis with current pathological fracture, left femur, initial encounter for fracture (principal); I50.31 Acute diastolic (congestive) heart failure; E87.1 Hypo-osmolality and hyponatremia; J98.11 Atelectasis; E87.6 Hypokalemia; E78.5 Hyperlipidemia, unspecified; R03.0 Elevated blood-pressure reading, without diagnosis of hypertension; R09.02 Hypoxemia; S31.821A Laceration without foreign body of left buttock, initial encounter; Z79.899 Other long term (current) drug therapy; Z79.01 Long term (current) use of anticoagulants; Z86.718 Personal history of other venous thrombosis and embolism; W19.XXXA Unspecified fall, initial encounter

== ENCOUNTER 2017-06-26 11:34 | Emergency (ER) | payer OTHER ==
[~2017-06-26] VITALS: Ht 165.1 cm; Wt 70.0 kg
[~2017-06-26 11:34] MED LIST changes: +APIX1TAB3 PO; +Boost PO; -CHOL100027 PO; +CHOL20005 PO; +FLUT0.15 NAE; +MCRK20 PO; -MDR4 PO; +MOMLX PO; +MRLP17X PO; +PSEU30TA20 PO; +RXC5 PO
[2017-06-26 11:36] VITALS: TEMP 36.7; Ht 165.1 cm; Wt 70.0 kg
--- NOTE | 2017-06-26 12:41 | DIAGNOSTIC IMAGING REPORT ---
R SHOULDER MIN 2 VIEWS ROUTINE CLINICAL HISTORY: Right shoulder pain status post trauma COMPARISON: None. DISCUSSION: There is an acute proximal humeral fracture involving the surgical neck and base of the head. There is an 18 mm displaced fragment which may represent the greater tuberosity. There is no dislocation. There are right-sided rib deformities which are likely old. No pneumothorax is visualized. IMPRESSION: Acute proximal right humeral fracture Electronically signed by: Severiano Villegas M.D. 06/26/2017 12:39 PM Dictated Date/Time: 06/26/2017 12:38 PM
[2017-06-26] MEDS ORDERED: LIDODERM (LIDOCAINE) PATCH 5% TD STA (13:01)
[2017-06-26] MEDS ORDERED: ONDANSETRON 4MG OD TAB PO STA (13:14)
[2017-06-26] MEDS ORDERED: OXYC1TAB3 PO (13:35)
[2017-06-26] MEDS ORDERED: LIDO1PAD2 TD (13:35)
--- NOTE | 2017-06-26 13:37 | EMERGENCY ROOM VISIT NOTE ---
ED Visit Note First contact with patient: 11:39 CHIEF COMPLAINT: Right shoulder pain HISTORY OF PRESENT ILLNESS: This 86-year-old female patient presents to the emergency department, ambulatory, with her daughter, complaining of pain in the right shoulder since yesterday. Patient states she fell yesterday after she tripped on a rug, and struck her right shoulder against a door jam. She states this occurred at approximately 4 PM yesterday. Last evening, she applied ice and rested the shoulder, but when she awoke today the pain became significantly worsening. She did take "a couple of Tylenol at approximately 11 AM. She has been nauseated and had one episode of sweats last night due to the pain. She states she does feel shaky and wobbly, but associates this with not having an appetite and not eating since yesterday due to pain. She denies any abdominal pain, chest pain, dyspnea, neck pain, head injury, head pain, confusion, amnesia , back pain, urinary symptoms, or previous injury to the right shoulder. There is limitation of motion of the arm because of the pain. The pain is moderate, constant and increases with motion of the hand and arm. The patient states the pain is sharp and 8/10. No numbness or tingling. No cough. REVIEW OF SYSTEMS: A 6 system review of systems was performed with positives and pertinent negatives in the HPI. ALLERGIES: Doxycycline, simvastatin, sulfa MEDICATIONS: Atorvastatin, Valium, magnesium, MiraLAX PMH: Hyperlipidemia, chronic pain SOCIAL HISTORY: The patient lives locally at [facility] in assisted living. She denies drug, alcohol, tobacco use. PHYSICAL EXAM: Vital Signs: Reviewed nurse's notes, vital signs stable. GENERAL : This is a pleasant 86-year-old white female, in no acute distress, but appears to be in pain, well-developed, well-nourished. MUSCULOSKELETAL: There is no obvious deformity in the contour of the right shoulder and there are no obvious gabriela deformities noted. There is no sulcus sign. There is tenderness over the humeral head. The patient's range of motion is limited in all directions. Supraspinatus strength 3/5. There is no clavicle tenderness. No tenderness of the shaft or distal humerus, elbow, wrist, or hand. Shopfitter strength 5/5. Radial pulse 2+. The patient does complain of some mild anterior chest wall tenderness on palpation. She also does complain of some scapular tenderness on the right. NECK: No tenderness to palpation over the cervical spine. Supple, no lymphadenopathy noted. HEART: Regular rate and rhythm without murmurs gallops or rubs. LUNGS: Clear to auscultation bilaterally without wheezes, rales or rhonchi. No accessory muscle use. No retractions. NEURO: The patient is alert and oriented to person, place, and time. Normal sensation to light and sharp touch. Capillary refill less than 2 seconds. RADIOLOGY: R SHOULDER MIN 2 VIEWS ROUTINE CLINICAL HISTORY: Right shoulder pain status post trauma COMPARISON: None. DISCUSSION: There is an acute proximal humeral fracture involving the surgical neck and base of the head. There is an 18 mm displaced fragment which may represent the greater tuberosity. There is no dislocation. There are right-sided rib deformities which are likely old. No pneumothorax is visualized. IMPRESSION: Acute proximal right humeral fracture Electronically signed by: Severiano Villegas M.D. 06/26/2017 12:39 PM Dictated Date/Time: 06/26/2017 12:38 PM EMERGENCY DEPARTMENT COURSE: I examined the patient. An X-ray of the right shoulder was reviewed by myself and radiologist and shows an acute proximal right humeral fracture. I did initially order a series of the ribs and scapula , however the patient was unable to tolerate having these images performed. The radiology clerk was able to extend out the window to observe the right ribs and chest, which did not reveal any obvious acute rib fractures or pneumothorax. The patient was given a Lidoderm patch here in the emergency department for pain. She complains of weakness and feeling shaky overall, so PSG tested and was 125. She also complained of nausea and was given 1 dose of 4 mg Zofran. The patient did have a cup of coffee which she tolerated well prior to discharge. She was seen and evaluated by Dr. ashley. The patient was placed in an arm sling and encouraged to follow-up with orthopedics. Her daughter will be spending time with her at home to ensure she can properly care for herself. Discharge instructions reviewed. Patient was discharged home in good condition. I attest that I have personally reviewed the patient's current medication list. Patient was found to have normal blood pressure on screening and does not require follow-up. Etiologies such as soft tissue injury, fracture, dislocation, neurovascular compromise, compartment syndrome, as well as others were entertained. DIAGNOSIS: Right humeral head fracture The chart was completed utilizing [employer] Speech voice recognition software. Grammatical errors, random word insertions, pronoun errors, and incomplete sentences are an occasional consequence of this system due to software limitations, ambient noise, and hardware issues. Any formal questions or concerns about the content, text, or information contained within the body of this dictation should be directly addressed to the provider for clarification. Problem List Medical Problems: (1) Bronchitis Status: Resolved (2) Chronic low back pain Status: Chronic (3) Hyperlipidemia Status: Chronic (4) Osteoporosis Status: Chronic Surgical Problems: (1) H/o bunion surgery Status: Chronic (2) History of cataract surgery Status: Resolved (3) Previous back surgery Status: Resolved (4) S/P tonsillectomy Status: Chronic (5) Status post lumbar surgery Status: Chronic Current/Historical Medications Scheduled Atorvastatin (Lipitor), 20 MG PO HS Cholecalciferol (Vitamin D3), 4,000 UNITS PO DAILY Magnesium Oxide (Mg Supplement (Magnesium), 500 MG PO DAILY Multiple Vitamin (Multi Vitamin Daily), 1 TAB PO DAILY Scheduled PRN Diazepam (Valium), 2 MG PO DAILY PRN for Muscle Spasms Lidocaine (Lidocaine), 1 PATCH TD QD PRN for Pain Magnesium Hydroxide (Milk of Magnesia), 30 ML PO DAILY PRN for Constipation Oxycodone Ir (Roxicodone Ir), 1 TAB PO Q6 PRN for Pain Polyethylene (Miralax), 17 GM PO DAILY PRN for Constipation Allergies Coded Allergies: Sulfa Antibiotics (Verified Allergy, Intermediate, RASH, 06/26/17) Doxycycline (Verified Adverse Reaction, Mild, GI UPSET, 06/26/17) Simvastatin (Verified Adverse Reaction, Mild, MUSCLE WEAKNESS, 06/26/17) Vital Signs Date Time Temp Pulse Resp B/P (MAP) Pulse Ox O2 Delivery O2 Flow Rate FiO2 06/26/17 14:15 72 124/79 91 06/26/17 11:36 36.7 87 16 149/81 94 Room Air Laboratory Results Test 06/26/17 12:12 Bedside Glucose 125 mg/dl (70-90) Medications Administered Medications (Trade) Dose Ordered Sig/Robert Route Start Time Stop Time Status Last Admin Dose Admin Lidocaine (Lidoderm Patch 5%) 1 patch NOW STAT TD 06/26/17 13:01 5/20/18 13:04 DC 06/26/17 13:30 1 PATCH Ondansetron HCl (Zofran Odt) 4 mg NOW STAT PO 06/26/17 13:14 06/26/17 13:15 DC 06/26/17 13:23 4 MG Departure Information Impression Primary Impression: Fall Additional Impression: Fracture of humeral head, right, closed Dispostion Home / Self-Care Condition GOOD Prescriptions Oxycodone Ir (Roxicodone Ir) 5 Mg Tab 1 TAB PO Q6 Y for Pain, #15 TAB For Initial Treatment Prov: Jessie Bingham PA-C 06/26/17 Lidocaine (LIDOCAINE) 5 % Pad 1 PATCH TD QD Y for Pain, #30 PATCH 1 patch in 24 hours. Patch must be removed after 12 hours, no patch for 12 hours. Prov: Jessie Bingham PA-C 06/26/17 Referrals Rod Guerrero III, M.D. (PCP) Timothy Coello M.D. Patient Instructions ED Fx Shoulder, Humerus Fx, My [facility] Additional Instructions You were seen in the ED today for a humeral head fracture. Oxycodone (OxyIR) 5mg: Take 1 pills every four to six hours as needed for breakthrough pain. Avoid alcohol, operating machinery or dangerous equipment, working on ladders or roofs, DRIVING, or situations where being under the influence may be dangerous. It is recommended to use an [id number] stool softener such as Colace, 100mg twice daily while taking this medication to avoid constipation. Acetaminophen(Tylenol) may be used for fever or pain. Use 1000mg every six hours as needed. Avoid using more than 3000mg in a 24 hour period. Use lidoderm patches as needed for pain. Apply no more than 1 patch every 24 hours. Patch may only be on skin for 12 hours, then must be removed and left off for 12 hours. Ice compresses for 20 minutes at a time four times daily for 2-3 days. Use the sling as instructed. Remove your arm from the sling 4-6 times a day and move all the joints around to keep them loose. Rest and elevate your injury. Return to the ER immediately for any numbness, tingling, severe pain, extreme swelling in the extremity or as needed. Call [facility], [phone], tomorrow morning to arrange follow up for your injury. Follow-up with your primary care physician in 2 to 3 days for a recheck of your current condition. Problem Qualifiers Primary Impression: Fall Encounter type: initial encounter Qualified Codes: W19.XXXA - Unspecified fall, initial encounter Additional Impression: Fracture of humeral head, right, closed Encounter type: initial encounter Qualified Codes: S42.291A - Other displaced fracture of upper end of right humerus, initial encounter for closed fracture
[2017-06-26 14:15] VITALS: BP 124/79; PULSE 72; O2SAT 91
--- NOTE | 2017-06-26 22:55 | EMERGENCY ROOM VISIT NOTE ---
ED Visit Note First contact with patient: 11:39 I reviewed the patient's past medical history, medications, and visit nursing notes. I discussed the case with the physician certified medical assistant, examined the patient, and agree with the findings and plan as documented in the physician assistants note.
== END 2017-06-26 14:17 | disposition home or self-care (01) ==
LOC: C.EDB 11:35 → C.EDD 14:17
DX: S42.201A Unspecified fracture of upper end of right humerus, initial encounter for closed fracture (principal); W01.198A Fall on same level from slipping, tripping and stumbling with subsequent striking against other object, initial encounter; E78.5 Hyperlipidemia, unspecified; M81.0 Age-related osteoporosis without current pathological fracture; Z88.1 Allergy status to other antibiotic agents; Z88.2 Allergy status to sulfonamides; Z88.8 Allergy status to other drugs, medicaments and biological substances; Z79.899 Other long term (current) drug therapy